=== PATIENT | female | born 1955 | race Caucasian/White ===

== ENCOUNTER 2018-08-18 11:22 | Inpatient (IN) | payer BC ==
[2018-08-18] MEDS ORDERED: Aplisol ID ONE (17:09)
[2018-08-18 17:50] LABS: BLOOD UREA NITROGEN 13 mg/dL (7-17); CHLORIDE 97 mmol/L (98-107); Calcium 9.9 mg/dL (8.4-10.2); Carbon Dioxide 30 mmol/L (22-30); Creatinine 1 0.91 mg/dL (0.52-1.04); Glucose 123 mg/dL (74-106); Potassium 4.6 mmol/L (3.5-5.1); SODIUM 138 mmol/L (137-145)
[2018-08-18] MEDS ORDERED: MOTRIN 400 MG PO PRN (21:58)
[2018-08-18] MEDS ORDERED: ULTRAM 50 MG PO PRN (22:01)
[2018-08-18] MEDS: ZOCOR 20MG PO SCH (22:25)
[2018-08-18] MEDS: Paxil 20 MG PO SCH (22:25)
[2018-08-18] MEDS: Lopressor 25MG Tab PO SCH (22:25)
[2018-08-19] MEDS ORDERED: ULTRAM 50 MG PO PRN (07:45)
[2018-08-19] MEDS ORDERED: NON-FORMULARY ITEM (Budesonide/Formoterol Fumarate [Symbicort 160-4.5 Mcg Inhaler] 10.2 GM IH PRN (07:49)
[2018-08-19] MEDS ORDERED: MEDICATION INTERVENTION MC SCH (08:00)
[2018-08-19] MEDS: PERCOCET TABLET 5/325MG PO PRN ×2 (08:24→22:12)
[2018-08-19] MEDS: Maxzide-25MG Tablet PO SCH (10:24)
[2018-08-19] MEDS: Miralax Powder 17GM PACKET PO SCH (10:25)
[2018-08-19] MEDS: NORVASC 5 MG PO SCH (10:25)
[2018-08-19] MEDS: XARELTO 10 MG TABLET PO SCH (22:09)
[2018-08-19] MEDS: Lopressor 25MG Tab PO SCH (22:09)
[2018-08-19] MEDS: ZOCOR 20MG PO SCH (22:09)
[2018-08-19] MEDS: Paxil 20 MG PO SCH (22:09)
[2018-08-20] MEDS: NORVASC 5 MG PO SCH (10:35)
[2018-08-20] MEDS: Maxzide-25MG Tablet PO SCH (10:35)
[2018-08-20] MEDS: Miralax Powder 17GM PACKET PO SCH (10:36)
[2018-08-20] MEDS: ULTRAM 50 MG PO PRN (18:15)
[2018-08-20] MEDS: Paxil 20 MG PO SCH (22:22)
[2018-08-20] MEDS: Lopressor 25MG Tab PO SCH (22:22)
[2018-08-20] MEDS: XARELTO 10 MG TABLET PO SCH (22:22)
[2018-08-20] MEDS: ZOCOR 20MG PO SCH (22:22)
[2018-08-21] MEDS: PERCOCET TABLET 5/325MG PO PRN ×3 (01:37→23:13)
[2018-08-21] MEDS: Maxzide-25MG Tablet PO SCH (09:28)
[2018-08-21] MEDS: NORVASC 5 MG PO SCH (09:28)
[2018-08-21] MEDS: Miralax Powder 17GM PACKET PO SCH (10:56)
[2018-08-21] MEDS: Paxil 20 MG PO SCH (23:09)
[2018-08-21] MEDS: Lopressor 25MG Tab PO SCH (23:09)
[2018-08-21] MEDS: XARELTO 10 MG TABLET PO SCH (23:09)
[2018-08-21] MEDS: ZOCOR 20MG PO SCH (23:09)
[2018-08-22] MEDS: ULTRAM 50 MG PO PRN ×3 (08:52→22:34)
[2018-08-22] MEDS: Maxzide-25MG Tablet PO SCH (10:08)
[2018-08-22] MEDS: NORVASC 5 MG PO SCH (10:08)
[2018-08-22] MEDS: Miralax Powder 17GM PACKET PO SCH (10:10)
[2018-08-22] MEDS: ZOCOR 20MG PO SCH (22:29)
[2018-08-22] MEDS: XARELTO 10 MG TABLET PO SCH (22:29)
[2018-08-22] MEDS: Lopressor 25MG Tab PO SCH (22:29)
[2018-08-22] MEDS: Paxil 20 MG PO SCH (22:29)
[2018-08-23] MEDS: Maxzide-25MG Tablet PO SCH (09:39)
[2018-08-23] MEDS: NORVASC 5 MG PO SCH (09:39)
[2018-08-23] MEDS: Miralax Powder 17GM PACKET PO SCH (09:41)
[2018-08-23] MEDS: TYLENOL 325 MG PO PRN (14:53)
[2018-08-23] MEDS: ULTRAM 50 MG PO PRN (21:29)
[2018-08-23] MEDS: Paxil 20 MG PO SCH (21:29)
[2018-08-23] MEDS: ZOCOR 20MG PO SCH (21:29)
[2018-08-23] MEDS: Lopressor 25MG Tab PO SCH (21:29)
[2018-08-23] MEDS: XARELTO 10 MG TABLET PO SCH (21:29)
[2018-08-24] MEDS: NORVASC 5 MG PO SCH (08:13)
[2018-08-24] MEDS: Maxzide-25MG Tablet PO SCH (08:13)
[2018-08-24] MEDS: Miralax Powder 17GM PACKET PO SCH (08:29)
[2018-08-24] MEDS: TYLENOL 325 MG PO PRN (19:32)
[2018-08-24 21:48] VITALS: O2SAT 94
[2018-08-24] MEDS: XARELTO 10 MG TABLET PO SCH (22:19)
[2018-08-24] MEDS: Lopressor 25MG Tab PO SCH (22:19)
[2018-08-24] MEDS: Paxil 20 MG PO SCH (22:19)
[2018-08-24] MEDS: ZOCOR 20MG PO SCH (22:20)
[2018-08-25 08:11] VITALS: BP 157/70; PULSE 66
--- NOTE | 2018-08-25 08:43 | DS ---
DISCHARGE DIAGNOSES: 1) KNEE REPLACEMENT SURGERY. 2) HYPERTENSION. HOSPITAL COURSE: The patient is a 62 year-old white female who had knee replacement surgery in [place]. She was admitted to our hospital swing-bed program for rehab. She has done quite well with her rehab ambulating the halls without difficulty. She is felt to be ready for discharge home by the morning of 08/25/2018. She has a follow up appointment to see her orthopedic physician in [place]. She will also have an appointment to see me in the office in one week. She will also be receiving outpatient therapy as well upon discharge home. The patient will continue to use her usual home medications with amlodipine 5 mg a day, Symbicort inhaler, ibuprofen PRN, Lopressor 25 mg at night, Percocet PRN for pain, paroxetine 20 mg at night, Pravachol 20 mg at night, Xarelto 10 mg at night, tramadol 50 mg PRN for pain and Maxzide 25 mg daily. The patient did have laboratories during her stay with [facility]. She had a BUN 13, creatinine 0.91. Her electrolytes were normal. Again, the patient is ready for discharge at this time. She was instructed to call if she has any problems with fever, warmth or redness in the leg.
[2018-08-25] MEDS: Maxzide-25MG Tablet PO SCH (11:51)
[2018-08-25] MEDS: Miralax Powder 17GM PACKET PO SCH (11:51)
[2018-08-25] MEDS: NORVASC 5 MG PO SCH (11:51)
== END 2018-08-25 12:50 | disposition home or self-care (01) | DRG 561 ==
LOC: MED SURG 16:12
PROVIDERS: ADMIT Family Medicine; ATTEND Family Medicine
DX: Z47.1 Aftercare following joint replacement surgery (principal); Z96.651 Presence of right artificial knee joint; I10 Essential (primary) hypertension; E78.5 Hyperlipidemia, unspecified; Z79.899 Other long term (current) drug therapy
CPT/HCPCS: 36415; 80048; 97110-GP; A9270-GY

== ENCOUNTER 2025-04-12 11:16 | Inpatient (IN) | payer MEDICARE, OTHER ==
--- NOTE | 2025-04-12 11:21 | ERPHSYRPT ---
- History of Present Illness Time Seen by Provider: 04/12/25 11:20 Source: EMS Exam Limitations: clinical condition Physician History: Patient is a morbidly obese 69-year-old white female patient was brought to the emergency department by the paramedics and is a patient of Dr. Aly out of [facility]. The patient lives alone. The last few days there has been signs of possibly some confusion. She has not been answering her phone. The paramedics provided additional independent history which includes family members went to her home to provide her with some taylor viri as they think she had not been eating or drinking well and the door was locked. They came back 24 hours later and the door was open the patient was on the toilet. There was some confusion and then. Confusion was worse this morning. Patient has a nonfocal exam but she is confused to time and place. She does not recall hitting her head. She has no complaints of pain. She does recall that she is to have some type of abdominal surgical procedure. A picture of black tarry stool was taken. It is unclear whether or not patient has been taking her medications. She is supposed to be taking Xarelto. Patient has a history of hypertension, hyperlipidemia, depression, asthma, gastroesophageal reflux disease. Time of Onset/Last Time Seen Normal: Several days ago Timing/Duration: day(s) (Symptoms for couple of days), worse Baseline/Normal Cognition: alert oriented x 3 Current Cognition: alert but confused, alert/disoriented to time Baseline Gait: walks w/o assistance Associated Symptoms: confusion Allergies/Adverse Reactions: No Known Drug Allergies Allergy (Verified 04/11/19 08:12) Home Medications: Budesonide/Formoterol Fumarate [Symbicort 160-4.5 Mcg Inhaler] 10.2 gm IH BID PRN 12/25/15 [History] Metoprolol Tartrate 25 mg [Lopressor 25MG Tab] 25 mg PO HS 12/25/15 [History] PARoxetine HCL [Paxil] 20 mg PO HS 12/25/15 [History] Pravastatin Sodium [Pravachol] 20 mg PO HS 12/25/15 [History] Amlodipine Besylate 5 mg [Norvasc 5 mg] 5 mg PO DAILY 08/18/18 [History] Ibuprofen [IBUPROFEN 400 MG TABLET] 2 tablet PO Q6H PRN PRN 08/18/18 [History] Oxycodone HCl/Acetaminophen [Percocet 5-325 mg Tablet] 1 each PO Q4H PRN PRN 08/18/18 [History] Rivaroxaban 10 mg Tablet [Xarelto 10 mg Tablet] 10 mg PO HS 08/18/18 [History] Tramadol HCl 50 mg [Ultram 50 mg] 50 mg PO Q6HPRN PRN 08/18/18 [History] Triamterene/Hydrochlorothiazid [Triamterene-Hctz 37.5-25 mg Tb] 1 each PO DAILY 08/18/18 [History] Hx Influenza Vaccination/Date Given: Yes Hx Pneumococcal Vaccination/Date Given: No Travel Risk - International Travel Have you traveled outside of the country in past 3 weeks: No - Emerging Infectious Disease Are you exhibiting symptoms associated with any current EIDs: No - Review of Systems Constitutional: No Symptoms Eyes: No Symptoms Ears, Nose, & Throat: No Symptoms Respiratory: No Symptoms Cardiac: No Symptoms Abdominal/Gastrointestinal: No Symptoms Genitourinary Symptoms: No Symptoms Musculoskeletal: No Symptoms Skin: No Symptoms Neurological: Other (Confusion) Psychological: No Symptoms Endocrine: No Symptoms Hematologic/Lymphatic: No Symptoms Immunological/Allergic: No Symptoms All Other Systems: Reviewed and Negative - Past Medical History Pertinent Past Medical History: Yes Respiratory History: Other, Asthma GI Medical History: Hernia, Other, GERD, Gallbladder Disease Female Reproductive Disorders: Fibroids, Endometriosis - Past Surgical History Past Surgical History: Yes Neuro Surgical History: No Pertinent History Cardiac: No Pertinent History Respiratory: Lobectomy, Other Gastrointestinal: Cholecystectomy Genitourinary: No Pertinent History Musculoskeletal: No Pertinent History, Other Female Surgical History: Hysterectomy, Other Other Surgical History: L knee scope,breast reduction,histoplasmosis, total left knee replacement 07/18. - Social History Drug Use: none - Nursing Vital Signs Nursing Vital Signs: Initial Vital Signs Temperature 98.8 F 04/12/25 11:19 Pulse Rate 125 H 04/12/25 11:19 Respiratory Rate 24 04/12/25 11:19 Blood Pressure 177/107 04/12/25 11:19 O2 Sat by Pulse Oximetry 98 04/12/25 11:19 Pain Scale Pain Intensity 0 - [place] Coma Scale Best Eye Response ([place]): (4) open spontaneously Best Verbal Response ([place]): (4) confused conversation Best Motor Response ([place]): (6) obeys commands [place] Total: 14 - Physical Exam General Appearance: no apparent distress, alert, obese Eye Exam: bilateral eye: normal inspection, PERRL, EOMI Ears, Nose, Throat Exam: normal ENT inspection, moist mucous membranes Neck Exam: normal inspection, non-tender, supple, full range of motion Respiratory: normal breath sounds, lungs clear, airway intact, No chest tenderness, No respiratory distress Cardiovascular: regular rate/rhythm, tachycardia Gastrointestinal: soft, normal bowel sounds, No tenderness Pelvic Exam: not done Rectal Exam: not done Extremity Exam: normal inspection, normal range of motion, pelvis stable 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 No evidence of acute ischemia.) Ordered Tests: Active Orders 24 hr Category Date Time Status Hands Parter STAT Care 04/12/25 11:29 Active Cath for Specimen-Straight STAT Care 04/12/25 11:29 Active EKG-ER Only STAT Care 04/12/25 11:28 Completed IV Insertion STAT Care 04/12/25 11:28 Active Pulse Oximetry (ED) STAT Care 04/12/25 11:28 Active ABDOMEN AND PELVIS W/0 CONTRAS [CT] Stat Exams 04/12/25 14:28 Completed HEAD WITHOUT CONTRAST [CT] Stat Exams 04/12/25 11:30 Completed BLOOD CULTURE Stat Lab 04/12/25 11:55 Received CBC W DIFF Stat Lab 04/12/25 12:03 Completed CMP Stat Lab 04/12/25 12:03 Completed CULTURE,URINE Stat Lab 04/12/25 11:30 Received Lactic Acid Stat Lab 04/12/25 11:55 Completed Lactic Acid Stat Lab 04/12/25 14:03 Completed MAGNESIUM Stat Lab 04/12/25 12:03 Completed POCT GLUCOSE Stat Lab 04/12/25 17:36 Completed PROTIME WITH INR Stat Lab 04/12/25 12:03 Completed UA W/RFX UR CULTURE Stat Lab 04/12/25 11:30 Completed Urine Triage Profile Stat Lab 04/12/25 11:30 Completed Transfer Order Routine Transfer 04/12/25 Ordered Medication Summary Generic Name Dose Route Start Last Admin Trade Name Deo PRN Reason Stop Dose Admin Sodium Chloride 1,000 mls @ 100 mls/hr 04/12/25 11:30 04/12/25 11:56 Sodium Chloride 0.9% 1000 Ml IV 05/12/25 11:29 100 mls/hr .Q10H VADIM Administration Discontinued Medications Generic Name Dose Route Start Last Admin Trade Name Deo PRN Reason Stop Dose Admin Piperacillin Sod/Tazobactam 100 mls @ 200 mls/hr 04/12/25 13:58 04/12/25 15:05 Sod 3.375 gm/ Sodium Chloride IV 04/12/25 14:27 Infused STAT STA Infusion Sodium Chloride Confirm 04/12/25 14:08 Sodium Chloride 0.9% 250 Ml Administered 04/12/25 14:09 Dose 250 mls @ ud IV .STK-MED ONE Sodium Chloride Confirm 04/12/25 14:09 Sodium Chloride 0.9% Administered 04/12/25 14:10 Dose 100 mls @ ud .ROUTE .STK-MED ONE Sodium Chloride Confirm 04/12/25 14:13 Sodium Chloride 0.9% 500 Ml Administered 04/12/25 14:14 Dose 500 mls @ ud IV .STK-MED ONE Sodium Chloride Confirm 04/12/25 14:13 Sodium Chloride 0.9% Administered 04/12/25 14:14 Dose 100 mls @ ud .ROUTE .STK-MED ONE Labetalol HCl 10 mg 04/12/25 12:29 04/12/25 12:32 Labetalol Hcl 20 Mg/4 Ml Disp.Syringe IV 04/12/25 12:30 10 mg STAT ONE Administration Labetalol HCl Confirm 04/12/25 12:31 Labetalol Hcl 20 Mg/4 Ml Disp.Syringe Administered 04/12/25 12:32 Dose 20 mg IV .STK-MED ONE Piperacillin Sod/Tazobactam Sod Confirm 04/12/25 14:05 Piperacillin/Tazobactam Sodium 3.375 Gm Vial Administered 04/12/25 14:06 Dose 3.375 gm IV .STK-MED ONE Lab/Rad Data: Laboratory Result Diagrams 04/12/25 12:03 04/12/25 12:03 Laboratory Results 04/12/25 04/12/25 04/12/25 Range/Units 17:36 14:03 12:03 WBC (3.98-10.04) x10^3/uL RBC (3.93-5.22) x10^6/uL Hgb (11.2-15.7) g/dL Hct (34.1-44.9) % MCV (79.4-94.8) fL MCH (25.6-32.2) pg MCHC (32.2-35.5) g/dL RDW (11.7-14.4) % Plt Count (182-369) x10^3/uL MPV (9.4-12.3) fL Gran % (34.0-71.1) % Immature Gran % (Auto) (0.001-0.429) % Nucleat RBC Rel Count (0.00-0.2) % Eos # (Auto) (0.04-0.36) x10^3/uL Immature Gran # (Auto) (0.001-0.031) x10^3u/L Absolute Lymphs (auto) (1.18-3.74) x10^3/uL Absolute Monos (auto) (0.24-0.86) x10^3/uL Absolute Nucleated RBC (0.00-0.012) x10^3u/L Lymphocytes % (19.3-51.7) % Monocytes % (4.7-12.5) % Eosinophils % (0.7-5.8) % Basophils % (0.1-1.2) % Absolute Granulocytes (1.56-6.13) x10^3/uL Basophils # (0.01-0.08) x10^3/uL PT (9.4-12.5) SECONDS INR (0.8-3.0) Sodium (135-145) mmol/L Potassium (3.5-5.1) mmol/L Chloride (98-107) mmol/L Carbon Dioxide (22-30) mmol/L Anion Gap (5-15) MEQ/L BUN (7-17) mg/dL Creatinine (0.52-1.04) mg/dL Estimated GFR ML/MIN Glucose (74-106) mg/dL POC Glucometer 155 H (74 to 106) mg/dL Lactic Acid 1.8 (0.4-2.0) Calcium (8.4-10.2) mg/dL Magnesium (1.6-2.3) mg/dL Total Bilirubin (0.2-1.3) mg/dL AST (14-36) U/L ALT (0-35) U/L Alkaline Phosphatase (38-126) U/L Ammonia < 9 L (9-30) umol/L Serum Total Protein (6.3-8.2) g/dL Albumin (3.5-5.0) g/dL Urine Color (Yellow) Urine Appearance (Clear) Urine pH (4.6-8.0) Ur Specific [place] (1.005-1.030) Urine Protein (Negative) Urine Glucose (UA) (Negative) mg/dL Urine Ketones (Negative) Urine Blood (Negative) Urine Nitrite (Negative) Urine Bilirubin (Negative) Urine Urobilinogen (0.2) mg/dL Ur Leukocyte Esterase (Negative) U Hyaline Cast (Auto) (0-2) /LPF Urine Microscopic RBC (0-5) /HPF Urine Microscopic WBC (0-5) /HPF Ur Epithelial Cells (None Seen) /HPF Urine Bacteria (None Seen) /HPF Urine Culture Reflexed (NO) Urine Opiates Level (NEGATIVE) Ur Methadone (NEGATIVE) Urine Barbiturates (NEGATIVE) Ur Phencyclidine (PCP) (NEGATIVE) Urine Amphetamine (NEGATIVE) U Benzodiazepine Level (NEGATIVE) Urine Cocaine (NEGATIVE) Urine Marijuana (THC) (NEGATIVE) Slides for Path Review 04/12/25 04/12/25 04/12/25 Range/Units 12:03 12:03 12:03 WBC 22.2 H (3.98-10.04) x10^3/uL RBC 5.23 H (3.93-5.22) x10^6/uL Hgb 14.6 (11.2-15.7) g/dL Hct 46.7 H (34.1-44.9) % MCV 89.3 (79.4-94.8) fL MCH 27.9 (25.6-32.2) pg MCHC 31.3 L (32.2-35.5) g/dL RDW 13.2 (11.7-14.4) % Plt Count 250 (182-369) x10^3/uL MPV 12.0 (9.4-12.3) fL Gran % 84.0 H (34.0-71.1) % Immature Gran % (Auto) 0.5 H (0.001-0.429) % Nucleat RBC Rel Count 0.0 (0.00-0.2) % Eos # (Auto) 0 L (0.04-0.36) x10^3/uL Immature Gran # (Auto) 0.11 H (0.001-0.031) x10^3u/L Absolute Lymphs (auto) 1.18 (1.18-3.74) x10^3/uL Absolute Monos (auto) 2.24 H (0.24-0.86) x10^3/uL Absolute Nucleated RBC 0.00 (0.00-0.012) x10^3u/L Lymphocytes % 5.3 L (19.3-51.7) % Monocytes % 10.1 (4.7-12.5) % Eosinophils % 0.0 L (0.7-5.8) % Basophils % 0.1 (0.1-1.2) % Absolute Granulocytes 18.63 H (1.56-6.13) x10^3/uL Basophils # 0.02 (0.01-0.08) x10^3/uL PT 12.2 (9.4-12.5) SECONDS INR 1.09 (0.8-3.0) Sodium 133 L (135-145) mmol/L Potassium 3.7 (3.5-5.1) mmol/L Chloride 98 (98-107) mmol/L Carbon Dioxide 20 L (22-30) mmol/L Anion Gap 20.0 H (5-15) MEQ/L BUN 43 H (7-17) mg/dL Creatinine 2.45 H (0.52-1.04) mg/dL Estimated GFR 20.8 ML/MIN Glucose 188 H (74-106) mg/dL POC Glucometer (74 to 106) mg/dL Lactic Acid (0.4-2.0) Calcium 9.6 (8.4-10.2) mg/dL Magnesium 2.3 (1.6-2.3) mg/dL Total Bilirubin 1.80 H (0.2-1.3) mg/dL AST 362 H (14-36) U/L ALT 151 H (0-35) U/L Alkaline Phosphatase 162 H (38-126) U/L Ammonia (9-30) umol/L Serum Total Protein 8.3 H (6.3-8.2) g/dL Albumin 4.4 (3.5-5.0) g/dL Urine Color (Yellow) Urine Appearance (Clear) Urine pH (4.6-8.0) Ur Specific [place] (1.005-1.030) Urine Protein (Negative) Urine Glucose (UA) (Negative) mg/dL Urine Ketones (Negative) Urine Blood (Negative) Urine Nitrite (Negative) Urine Bilirubin (Negative) Urine Urobilinogen (0.2) mg/dL Ur Leukocyte Esterase (Negative) U Hyaline Cast (Auto) (0-2) /LPF Urine Microscopic RBC (0-5) /HPF Urine Microscopic WBC (0-5) /HPF Ur Epithelial Cells (None Seen) /HPF Urine Bacteria (None Seen) /HPF Urine Culture Reflexed (NO) Urine Opiates Level (NEGATIVE) Ur Methadone (NEGATIVE) Urine Barbiturates (NEGATIVE) Ur Phencyclidine (PCP) (NEGATIVE) Urine Amphetamine (NEGATIVE) U Benzodiazepine Level (NEGATIVE) Urine Cocaine (NEGATIVE) Urine Marijuana (THC) (NEGATIVE) Slides for Path Review YES 04/12/25 04/12/25 04/12/25 Range/Units 11:55 11:30 11:30 WBC (3.98-10.04) x10^3/uL RBC (3.93-5.22) x10^6/uL Hgb (11.2-15.7) g/dL Hct (34.1-44.9) % MCV (79.4-94.8) fL MCH (25.6-32.2) pg MCHC (32.2-35.5) g/dL RDW (11.7-14.4) % Plt Count (182-369) x10^3/uL MPV (9.4-12.3) fL Gran % (34.0-71.1) % Immature Gran % (Auto) (0.001-0.429) % Nucleat RBC Rel Count (0.00-0.2) % Eos # (Auto) (0.04-0.36) x10^3/uL Immature Gran # (Auto) (0.001-0.031) x10^3u/L Absolute Lymphs (auto) (1.18-3.74) x10^3/uL Absolute Monos (auto) (0.24-0.86) x10^3/uL Absolute Nucleated RBC (0.00-0.012) x10^3u/L Lymphocytes % (19.3-51.7) % Monocytes % (4.7-12.5) % Eosinophils % (0.7-5.8) % Basophils % (0.1-1.2) % Absolute Granulocytes (1.56-6.13) x10^3/uL Basophils # (0.01-0.08) x10^3/uL PT (9.4-12.5) SECONDS INR (0.8-3.0) Sodium (135-145) mmol/L Potassium (3.5-5.1) mmol/L Chloride (98-107) mmol/L Carbon Dioxide (22-30) mmol/L Anion Gap (5-15) MEQ/L BUN (7-17) mg/dL Creatinine (0.52-1.04) mg/dL Estimated GFR ML/MIN Glucose (74-106) mg/dL POC Glucometer (74 to 106) mg/dL Lactic Acid 3.4 H (0.4-2.0) Calcium (8.4-10.2) mg/dL Magnesium (1.6-2.3) mg/dL Total Bilirubin (0.2-1.3) mg/dL AST (14-36) U/L ALT (0-35) U/L Alkaline Phosphatase (38-126) U/L Ammonia (9-30) umol/L Serum Total Protein (6.3-8.2) g/dL Albumin (3.5-5.0) g/dL Urine Color Dark Yellow A (Yellow) Urine Appearance Turbid A (Clear) Urine pH 5.0 (4.6-8.0) Ur Specific [place] 1.025 (1.005-1.030) Urine Protein 300 A (Negative) Urine Glucose (UA) 100 A (Negative) mg/dL Urine Ketones Negative (Negative) Urine Blood Large A (Negative) Urine Nitrite Positive A (Negative) Urine Bilirubin Small A (Negative) Urine Urobilinogen 1.0 A (0.2) mg/dL Ur Leukocyte Esterase Moderate A (Negative) U Hyaline Cast (Auto) >50 A (0-2) /LPF Urine Microscopic RBC 3-5 (0-5) /HPF Urine Microscopic WBC 21-50 A (0-5) /HPF Ur Epithelial Cells Moderate A (None Seen) /HPF Urine Bacteria None Seen (None Seen) /HPF Urine Culture Reflexed ORDERED SEPARATELY (NO) Urine Opiates Level NEGATIVE (NEGATIVE) Ur Methadone NEGATIVE (NEGATIVE) Urine Barbiturates NEGATIVE (NEGATIVE) Ur Phencyclidine (PCP) NEGATIVE (NEGATIVE) Urine Amphetamine NEGATIVE (NEGATIVE) U Benzodiazepine Level NEGATIVE (NEGATIVE) Urine Cocaine NEGATIVE (NEGATIVE) Urine Marijuana (THC) NEGATIVE (NEGATIVE) Slides for Path Review - Progress Progress: improved, re-examined Progress Note: 04/12/25 12:11 My medical decision making and the assignment of high complexity of this patient's medical issue today is based on review of the patient's past medical history, reviewed the patient's medication list, reviewed patient drug allergy list, history present illness and physical findings on examination. The workup in this patient includes placement of an intravenous line, infusion of low rate crystalloid, urinalysis, urine drug triage, CT scan of the head without contrast, twelve-lead EKG, troponin level, CBC, CMP, magnesium level, ammonia level. Differential diagnosis includes but is not limited to metabolic encephalopathy, acute intracranial abnormality, CVA, TIA, urinary tract infection, dehydration, electrolyte abnormalities, arrhythmia, myocardial infarction, anemia 04/12/25 12:30 Nursing staff here in the emergency department report that this patient has not not taken her medications this morning. Patient unsure if she has taken them in the last few days. 04/12/25 18:10 I interpreted the patient's laboratory data results. Patient has a significant leukocytosis with a left shift. The white blood cell count is over 22,000. She has evidence of urosepsis and significant urinary tract infection. She also has elevated liver function test. Patient has an elevated lactic acid level. CT scan of the head without contrast was interpreted by the radiologist and I reviewed the impression. The impression states nonacute senile brain. CT scan of the abdomen pelvis was interpreted by the radiologist. This was a test performed without contrast. There is no acute intra-abdominal or intrapelvic process. There is evidence of degenerative changes in the pelvis and hip as well as in the spine. I spoke with the patient's family member. He believes that the "surgical procedure" being performed in this patient is not upper endoscopy. 04/12/25 18:16 I did speak with Dr. Harris a couple times regarding this patient. I reviewed the patient history, presenting complaint, physical findings on examination and the workup results including the results of the CT scan of the abdomen pelvis which she wanted performed prior to her going to the floor. We will place this patient on the medical surgical floor under telemetry monitoring. We will also obtain social service consultation for evaluation for possible intermediate placement. 04/12/25 18:19 I had not provided the patient with significant amount of intravenous fluid because of the patient's acute renal insufficiency. We will continue IV hydration and intravenous antibiotics in the hospital. Discussed with Dr.: Lorene Counseled pt/family regarding: lab results, diagnosis, rad results Medical Desision Making - Independent Historian Additional History obtained from: Family, Snow Removal/Plowing/EMT - Discussion of managment Care discussed with:: hospitalist - Diagnostic Testing Diagnostic test were ordered, analyzed, and reviewed by me: Yes Radiological Interpretation: Reviewed by me, Teleradiologist Report - Risk of complications The pt has a high risk of morbidity or mortality based on: Decision regarding hospitilization or escalation of hosp level of care - Departure Departure Disposition: Observation Clinical Impression: Acute renal insufficiency, Leukocytosis, Sepsis, Altered mental status, Elevated liver enzymes, Lactic acidosis Condition: Fair Critical Care Time: Yes Critical Care Time(excluding separately billable procedures): Critical 30-74 mins (60) Referrals: HARESH ALY JR [Primary Care Provider, ORTHOPEDICS] - Follow up/PCP as directed
[2025-04-12 12:13] LABS: BASOPHIL % 0.1 % (0.1-1.2); Basophil (Absolute #) 0.02 x10^3/uL (0.01-0.08); Eosinophil (Absolute #) 0 x10^3/uL (0.04-0.36); Hematocrit 46.7 % (34.1-44.9); Hemoglobin 14.6 g/dL (11.2-15.7); IMMATURE GRAN # 0.11 x10^3u/L (0.001-0.031); IMMATURE GRAN % 0.5 % (0.001-0.429); Lymphocyte (Absolute #) 1.18 x10^3/uL (1.18-3.74); Mean Corpuscular Hemoglobin 27.9 pg (25.6-32.2); Mean Corpuscular Hgb Concent. 31.3 g/dL (32.2-35.5); Monocyte (Absolute #) 2.24 x10^3/uL (0.24-0.86); NUCLEATED RBC # 0.00 x10^3u/L (0.00-0.012); NUCLEATED RBC % 0.0 % (0.00-0.2); Platelet Count 250 x10^3/uL (182-369); Red Blood Count 5.23 x10^6/uL (3.93-5.22); White Blood Count 22.2 x10^3/uL (3.98-10.04)
[2025-04-12 12:27] LABS: Calcium 9.6 mg/dL (8.4-10.2); Carbon Dioxide 20.0 mmol/L (22-30); Creatinine 1 2.45 mg/dL (0.52-1.04); EST GLOMERULAR FILTRATION RATE 20.8 ML/MIN; Glucose 188.0 mg/dL (74-106); Potassium 3.7 mmol/L (3.5-5.1); SGOT/AST 362.0 U/L (14-36); SGPT/ALT 151.0 U/L (0-35); Total Protein 8.3 g/dL (6.3-8.2)
[2025-04-12 12:28] LABS: INR 1.09 (0.8-3.0); PROTIME 12.2 SECONDS (9.4-12.5)
[2025-04-12] MEDS ORDERED: TRANDATE 20 MG/4 ML SYRINGE IV ONE (12:31)
[2025-04-12] MEDS: TRANDATE 20 MG/4 ML SYRINGE IV ONE (12:32)
--- NOTE | 2025-04-12 12:35 | XRAY ---
Indication: Altered mental status. Multiple contiguous axial images obtained through the head without contrast. Comparison: None Age-appropriate global atrophy and minimal periventricular degenerative microischemia. No acute intracranial hemorrhage, abnormal extra-axial fluid collection, or mass effect. 4th ventricle is midline without hydrocephalus. [place]-white matter differentiation preserved. Bony calvarium intact. Visualized paranasal sinuses and mastoid air cells are clear. Impression: Nonacute senile brain.
[2025-04-12 13:09] LABS: Glucose, Urine 100 mg/dL (Negative); Protein,Urine Dip 300 (Negative); WBC 21-50 /HPF (0-5)
[2025-04-12 13:22] LABS: Amphetamine,Urine NEGATIVE (NEGATIVE); Barbiturate,Urine NEGATIVE (NEGATIVE); Benzodiazepine,Urine NEGATIVE (NEGATIVE); Cocaine,Urine NEGATIVE (NEGATIVE); Methadone,Urine NEGATIVE (NEGATIVE); Opiate,Urine NEGATIVE (NEGATIVE); PCP,Urine NEGATIVE (NEGATIVE); THC,Urine NEGATIVE (NEGATIVE)
[2025-04-12 13:47] LABS: Slide Review 1 YES
[2025-04-12] MEDS ORDERED: PIPERACILLIN/TAZOBACTAM IV ONE ×2 (14:05→23:30)
[2025-04-12] MEDS ORDERED: Sodium Chloride 0.9% 250 ML 0 ML IV ONE (14:08)
--- NOTE | 2025-04-12 17:17 | XRAY ---
Indication: Elevated liver enzymes. Multiple contiguous axial images obtained through the abdomen and pelvis without contrast. Comparison: CT abdomen only February 03, 2016 Lung bases again hyperinflated with now mild scattered bilateral subsegmental atelectasis/scarring. No infiltrate or effusion. Heart is now enlarged. Grossly stable moderate-sized hiatal hernia with partial intrathoracic stomach. Left hemidiaphragm demonstrates new chain of metallic densities presumed iatrogenic/postsurgical. Noncontrasted stomach and bowel loops appear nonobstructed with normal appendix. Again 20.9 cm fatty hepatomegaly and 14 cm splenomegaly. Previous cholecystectomy and hysterectomy. No free fluid/air. Remaining liver, pancreas, spleen, adrenal glands, kidneys, ureters, and bladder are unremarkable for noncontrast exam. New minimal aortoiliac calcifications without AAA. Osseous structures intact with now osteopenia, mild/moderate multilevel thoracolumbar degenerative spondylosis, mild degenerative changes both hips, and superior T12 endplate fracture with less than 25% height loss of uncertain chronicity. Impression: 1. New bibasilar atelectasis/scarring and cardiomegaly. Also new left hemidiaphragm metallic densities presumed iatrogenic/postsurgical. 2. New osteopenia, multilevel degenerative spondylosis, degenerative changes both hips, and T12 endplate fracture of uncertain chronicity. 3. Again hiatal hernia with partial intrathoracic stomach, fatty hepatomegaly, and splenomegaly. 4. Remaining CT abdomen/pelvis without contrast exam is negative.
[2025-04-12] MEDS: TYLENOL 325 MG PO PRN (20:34)
[2025-04-13] MEDS ORDERED: PIPERACILLIN/TAZOBACTAM IV ONE (05:22)
[2025-04-13] MEDS ORDERED: ULTRAM 50 MG PO PRN (07:06)
[2025-04-13] MEDS ORDERED: NON-FORMULARY ITEM (Budesonide/Formoterol Fumarate [Symbicort 160-4.5 Mcg Inhaler] 10.2 GM IH PRN (07:06)
[2025-04-13] MEDS ORDERED: IBUPROFEN PO PRN (07:06)
[2025-04-13 07:08] LABS: Hematocrit 40.2 % (34.1-44.9); Hemoglobin 12.4 g/dL (11.2-15.7); Mean Corpuscular Hemoglobin 28.4 pg (25.6-32.2); Mean Corpuscular Hgb Concent. 30.8 g/dL (32.2-35.5); Platelet Count 148 x10^3/uL (182-369); Red Blood Count 4.36 x10^6/uL (3.93-5.22); White Blood Count 14.6 x10^3/uL (3.98-10.04)
[2025-04-13] MEDS ORDERED: MOTRIN 400 MG PO PRN (07:18)
--- NOTE | 2025-04-13 07:22 | PCM.HP ---
History of Present Illness - Chief Complaint Chief Complaint: SEPSIS History of Present Illness: Sepsis secondary to urinary tract infection (acute pyelonephritis) (acute, ongoing evaluation) - She was initiated on IV Zosyn for enteric coverage after a 2.5 liter fluid bolus. - Blood and urine cultures are currently pending. - A repeat CBC and BMP have been ordered. Altered mental status (acute, ongoing evaluation) - This is suspected to be a metabolic encephalopathy secondary to her underlying infection and metabolic derangements. - She was initially alert and oriented to person only on presentation but has since improved. - Her mental status will be closely monitored as her underlying conditions are addressed. Acute kidney injury (acute, ongoing evaluation) - This is likely secondary to sepsis. - She received a 2.5 liter fluid bolus and will be continued on IV maintenance fluids at 75 mL/hr. - Her renal function will be reassessed following fluid resuscitation. Hypertension (chronic, controlled) - Her home blood pressure medications have been resumed. Volume depletion (acute, ongoing evaluation) - Her home diuretic has been held due to evidence of volume depletion. Subjective This is a 69-year-old woman who was transported to the hospital by emergency medical services after family members became concerned when she was not answering her phone. On presentation, she was found to be confused. Home medications Her home diuretic has been held. Her home blood pressure medication has been resumed. Physical examination Vital Signs Blood Pressure: 150/64 mmHg Heart Rate: 107 bpm Respiratory Rate: Tachypneic Oxygen Saturation: 92% on 2 liters of supplemental oxygen Height: 5'6" Weight: 137 lbs BMI: 22.1 Neurological She is alert and oriented to person, place, and time. Cardiovascular She is tachycardic with a regular rhythm. She is warm. Respiratory She is tachypneic but is able to speak comfortably in full sentences. Lab and Studies Reviewed - Basic Metabolic Panel (04/12/2025): Sodium 132, Potassium 3.7, Chloride 95, Bicarbonate 20, BUN 42, Creatinine 2.45, GFR 20. Independently reviewed and interpreted by me. - Lactic Acid (04/12/2025): 2.4. Independently reviewed and interpreted by me. - Complete Blood Count (04/12/2025): Hemoglobin 14.6, Platelet count 240,000- 250,000, White blood cell count 22.2. Independently reviewed and interpreted by me. - Urinalysis (04/12/2025): Positive for moderate leukocyte esterase and pyuria. Independently reviewed and interpreted by me. Notes reviewed Emergency Department documentation from 04/12/2025 was reviewed. The documentation noted the patient is a 69-year-old woman who presented with confusion, with concern for sepsis secondary to a urinary tract infection (acute pyelonephritis). The plan included a 2.5 liter fluid bolus and initiation of IV Zosyn. It also noted altered mental status secondary to metabolic encephalopathy and acute kidney injury likely secondary to sepsis. MDM Summary 1. Number and Complexity of Problems Addressed (CoPA): - High Complexity: The patient presents with multiple acute problems, including sepsis, acute kidney injury, and altered mental status, which pose a significant threat to life and bodily function, requiring intensive management. 2. Amount and/or Complexity of Data to be Reviewed and Analyzed (Data): - Extensive: Management required review of multiple complex lab tests (BMP, CBC, lactate, UA), review of external records (ED documentation), and ordering of additional tests (repeat CBC, BMP, cultures). 3. Risk of Complications, Morbidity, and/or Mortality (Risk): - High Risk: The decision-making is high risk due to the management of sepsis, which involves IV fluids and IV antibiotics (Zosyn). Furthermore, there is an escalation of care to an inpatient setting. - Review of Systems Constitutional: No Fever, No Chills Respiratory: No Cough, No Short Of Breath Cardiac: No Chest Pain, No Edema Abdominal/Gastrointestinal: No Abdominal Pain Hematologic/Lymphatic: No Easy Bleeding, No Easy Bruising Immunological/Allergic: No Symptoms Medications & Allergies Home Medications: Home Medication List Budesonide/Formoterol Fumarate [Symbicort 160-4.5 Mcg Inhaler] 10.2 gm IH BID PRN 12/25/15 [History Confirmed 08/18/18] Metoprolol Tartrate 25 mg [Lopressor 25MG Tab] 25 mg PO HS 12/25/15 [History Confirmed 08/18/18] PARoxetine HCL [Paxil] 20 mg PO HS 12/25/15 [History Confirmed 08/18/18] Pravastatin Sodium [Pravachol] 20 mg PO HS 12/25/15 [History Confirmed 08/18/18] Amlodipine Besylate 5 mg [Norvasc 5 mg] 5 mg PO DAILY 08/18/18 [History Confirmed 08/18/18] Ibuprofen [IBUPROFEN 400 MG TABLET] 2 tablet PO Q6H PRN PRN 08/18/18 [History Confirmed 08/18/18] Oxycodone HCl/Acetaminophen [Percocet 5-325 mg Tablet] 1 each PO Q4H PRN PRN 08/18/18 [History Confirmed 08/18/18] Rivaroxaban 10 mg Tablet [Xarelto 10 mg Tablet] 10 mg PO HS 08/18/18 [History Confirmed 08/18/18] Tramadol HCl 50 mg [Ultram 50 mg] 50 mg PO Q6HPRN PRN 08/18/18 [History Confirmed 08/18/18] Triamterene/Hydrochlorothiazid [Triamterene-Hctz 37.5-25 mg Tb] 1 each PO DAILY 08/18/18 [History Confirmed 08/18/18] Allergies/Adverse Reactions: Allergies Allergy/AdvReac Type Severity Reaction Status Date / Time No Known Drug Allergies Allergy Verified 04/11/19 08:12 - Past Medical History Past Medical History: Yes Neurological History: No Pertinent History ENT History: No Pertinent History Cardiac History: Hypertension Respiratory History: Other, Asthma Endocrine Medical History: No Pertinent History Musculoskelatal History: Osteoarthritis GI Medical History: Hernia, Other, GERD, Gallbladder Disease History: No Pertinent History Pyscho-Social History: No Pertinent History Reproductive Disorders: Fibroids, Endometriosis Comment: RIGHT LOWER LOBE OF LUNG REMOVED 18 YEARS AGO. HX OF 2 BLOOD TRANSFUSIONS DUE TO ANEMIA.. 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 - Social History Smoking Status: Unknown if ever smoked Exposure to second hand smoke: No Alcohol: None Drug Use: none - Social Determinants of Health Will the patient participate in the screening: Unable to obtain - Physical Exam Vital Signs: Vital Signs - 24 hr Temp Pulse Resp BP BP Pulse Ox 04/13/25 04:00 98.9 F 91 H 24 129/71 94 L 04/12/25 23:01 100.8 F 107 H 22 150/64 92 L 04/12/25 21:45 99.0 F 04/12/25 20:55 117 H 20 96 04/12/25 20:16 103.2 F 04/12/25 19:34 92 L 04/12/25 19:25 98.9 F 63 28 H 131/84 91 L 04/12/25 19:17 98.9 F 63 28 H 131/84 91 L 04/12/25 18:16 98.2 F 112 H 33 H 90/76 95 04/12/25 18:01 119 H 33 H 128/110 95 04/12/25 17:47 120 H 32 H 96 04/12/25 17:32 116 H 33 H 177/113 97 04/12/25 17:22 117 H 33 H 134/77 97 04/12/25 17:16 111 H 37 H 176/80 96 04/12/25 16:01 110 H 36 H 184/75 100 04/12/25 15:45 106 H 33 H 160/88 04/12/25 15:30 104 H 31 H 174/86 97 04/12/25 15:15 104 H 26 H 162/90 96 04/12/25 15:00 98 H 30 H 156/85 96 04/12/25 14:45 94 H 28 H 168/74 97 04/12/25 14:30 98 H 32 H 160/111 96 04/12/25 14:15 97 H 31 H 166/75 96 04/12/25 14:00 95 H 31 H 161/103 04/12/25 13:45 95 H 33 H 161/83 95 04/12/25 13:30 100 H 29 H 164/85 96 04/12/25 13:15 100 H 32 H 147/89 92 L 04/12/25 13:00 99 H 29 H 149/91 91 L 04/12/25 12:51 98 H 28 H 161/113 95 04/12/25 12:45 97 H 31 H 162/83 93 L 04/12/25 12:33 97 H 27 H 156/110 93 L 04/12/25 12:32 95 04/12/25 12:30 93 L 04/12/25 12:19 184/117 93 L 04/12/25 12:10 92 L 04/12/25 12:00 122 H 20 94 L 04/12/25 11:50 95 04/12/25 11:46 92 L 04/12/25 11:41 98 04/12/25 11:19 98.8 F 125 H 24 177/107 98 Results - Labs Lab/Micro Results: Lab Results-Last 24 Hours 04/12/25 04/12/25 04/12/25 Range/Units 11:30 11:30 11:55 WBC (3.98-10.04) x10^3/uL RBC (3.93-5.22) x10^6/uL Hgb (11.2-15.7) g/dL Hct (34.1-44.9) % MCV (79.4-94.8) fL MCH (25.6-32.2) pg MCHC (32.2-35.5) g/dL RDW (11.7-14.4) % Plt Count (182-369) x10^3/uL MPV (9.4-12.3) fL Gran % (34.0-71.1) % Immature Gran % (Auto) (0.001-0.429) % Nucleat RBC Rel Count (0.00-0.2) % Eos # (Auto) (0.04-0.36) x10^3/uL Immature Gran # (Auto) (0.001-0.031) x10^3u/L Absolute Lymphs (auto) (1.18-3.74) x10^3/uL Absolute Monos (auto) (0.24-0.86) x10^3/uL Absolute Nucleated RBC (0.00-0.012) x10^3u/L Lymphocytes % (19.3-51.7) % Monocytes % (4.7-12.5) % Eosinophils % (0.7-5.8) % Basophils % (0.1-1.2) % Absolute Granulocytes (1.56-6.13) x10^3/uL Basophils # (0.01-0.08) x10^3/uL PT (9.4-12.5) SECONDS INR (0.8-3.0) Sodium (135-145) mmol/L Potassium (3.5-5.1) mmol/L Chloride (98-107) mmol/L Carbon Dioxide (22-30) mmol/L Anion Gap (5-15) MEQ/L BUN (7-17) mg/dL Creatinine (0.52-1.04) mg/dL Estimated GFR ML/MIN Glucose (74-106) mg/dL POC Glucometer (74 to 106) mg/dL Lactic Acid 3.4 H (0.4-2.0) Calcium (8.4-10.2) mg/dL Magnesium (1.6-2.3) mg/dL Total Bilirubin (0.2-1.3) mg/dL AST (14-36) U/L ALT (0-35) U/L Alkaline Phosphatase (38-126) U/L Ammonia (9-30) umol/L Serum Total Protein (6.3-8.2) g/dL Albumin (3.5-5.0) g/dL Urine Color Dark Yellow A (Yellow) Urine Appearance Turbid A (Clear) Urine pH 5.0 (4.6-8.0) Ur Specific [place] 1.025 (1.005-1.030) Urine Protein 300 A (Negative) Urine Glucose (UA) 100 A (Negative) mg/dL Urine Ketones Negative (Negative) Urine Blood Large A (Negative) Urine Nitrite Positive A (Negative) Urine Bilirubin Small A (Negative) Urine Urobilinogen 1.0 A (0.2) mg/dL Ur Leukocyte Esterase Moderate A (Negative) U Hyaline Cast (Auto) >50 A (0-2) /LPF Urine Microscopic RBC 3-5 (0-5) /HPF Urine Microscopic WBC 21-50 A (0-5) /HPF Ur Epithelial Cells Moderate A (None Seen) /HPF Urine Bacteria None Seen (None Seen) /HPF Urine Culture Reflexed ORDERED SEPARATELY (NO) Urine Opiates Level NEGATIVE (NEGATIVE) Ur Methadone NEGATIVE (NEGATIVE) Urine Barbiturates NEGATIVE (NEGATIVE) Ur Phencyclidine (PCP) NEGATIVE (NEGATIVE) Urine Amphetamine NEGATIVE (NEGATIVE) U Benzodiazepine Level NEGATIVE (NEGATIVE) Urine Cocaine NEGATIVE (NEGATIVE) Urine Marijuana (THC) NEGATIVE (NEGATIVE) Slides for Path Review 04/12/25 04/12/25 04/12/25 Range/Units 12:03 12:03 12:03 WBC 22.2 H (3.98-10.04) x10^3/uL RBC 5.23 H (3.93-5.22) x10^6/uL Hgb 14.6 (11.2-15.7) g/dL Hct 46.7 H (34.1-44.9) % MCV 89.3 (79.4-94.8) fL MCH 27.9 (25.6-32.2) pg MCHC 31.3 L (32.2-35.5) g/dL RDW 13.2 (11.7-14.4) % Plt Count 250 (182-369) x10^3/uL MPV 12.0 (9.4-12.3) fL Gran % 84.0 H (34.0-71.1) % Immature Gran % (Auto) 0.5 H (0.001-0.429) % Nucleat RBC Rel Count 0.0 (0.00-0.2) % Eos # (Auto) 0 L (0.04-0.36) x10^3/uL Immature Gran # (Auto) 0.11 H (0.001-0.031) x10^3u/L Absolute Lymphs (auto) 1.18 (1.18-3.74) x10^3/uL Absolute Monos (auto) 2.24 H (0.24-0.86) x10^3/uL Absolute Nucleated RBC 0.00 (0.00-0.012) x10^3u/L Lymphocytes % 5.3 L (19.3-51.7) % Monocytes % 10.1 (4.7-12.5) % Eosinophils % 0.0 L (0.7-5.8) % Basophils % 0.1 (0.1-1.2) % Absolute Granulocytes 18.63 H (1.56-6.13) x10^3/uL Basophils # 0.02 (0.01-0.08) x10^3/uL PT 12.2 (9.4-12.5) SECONDS INR 1.09 (0.8-3.0) Sodium 133 L (135-145) mmol/L Potassium 3.7 (3.5-5.1) mmol/L Chloride 98 (98-107) mmol/L Carbon Dioxide 20 L (22-30) mmol/L Anion Gap 20.0 H (5-15) MEQ/L BUN 43 H (7-17) mg/dL Creatinine 2.45 H (0.52-1.04) mg/dL Estimated GFR 20.8 ML/MIN Glucose 188 H (74-106) mg/dL POC Glucometer (74 to 106) mg/dL Lactic Acid (0.4-2.0) Calcium 9.6 (8.4-10.2) mg/dL Magnesium 2.3 (1.6-2.3) mg/dL Total Bilirubin 1.80 H (0.2-1.3) mg/dL AST 362 H (14-36) U/L ALT 151 H (0-35) U/L Alkaline Phosphatase 162 H (38-126) U/L Ammonia (9-30) umol/L Serum Total Protein 8.3 H (6.3-8.2) g/dL Albumin 4.4 (3.5-5.0) g/dL Urine Color (Yellow) Urine Appearance (Clear) Urine pH (4.6-8.0) Ur Specific [place] (1.005-1.030) Urine Protein (Negative) Urine Glucose (UA) (Negative) mg/dL Urine Ketones (Negative) Urine Blood (Negative) Urine Nitrite (Negative) Urine Bilirubin (Negative) Urine Urobilinogen (0.2) mg/dL Ur Leukocyte Esterase (Negative) U Hyaline Cast (Auto) (0-2) /LPF Urine Microscopic RBC (0-5) /HPF Urine Microscopic WBC (0-5) /HPF Ur Epithelial Cells (None Seen) /HPF Urine Bacteria (None Seen) /HPF Urine Culture Reflexed (NO) Urine Opiates Level (NEGATIVE) Ur Methadone (NEGATIVE) Urine Barbiturates (NEGATIVE) Ur Phencyclidine (PCP) (NEGATIVE) Urine Amphetamine (NEGATIVE) U Benzodiazepine Level (NEGATIVE) Urine Cocaine (NEGATIVE) Urine Marijuana (THC) (NEGATIVE) Slides for Path Review YES 11/14/25 11/14/25 11/14/25 Range/Units 12:03 14:03 17:36 WBC (3.98-10.04) x10^3/uL RBC (3.93-5.22) x10^6/uL Hgb (11.2-15.7) g/dL Hct (34.1-44.9) % MCV (79.4-94.8) fL MCH (25.6-32.2) pg MCHC (32.2-35.5) g/dL RDW (11.7-14.4) % Plt Count (182-369) x10^3/uL MPV (9.4-12.3) fL Gran % (34.0-71.1) % Immature Gran % (Auto) (0.001-0.429) % Nucleat RBC Rel Count (0.00-0.2) % Eos # (Auto) (0.04-0.36) x10^3/uL Immature Gran # (Auto) (0.001-0.031) x10^3u/L Absolute Lymphs (auto) (1.18-3.74) x10^3/uL Absolute Monos (auto) (0.24-0.86) x10^3/uL Absolute Nucleated RBC (0.00-0.012) x10^3u/L Lymphocytes % (19.3-51.7) % Monocytes % (4.7-12.5) % Eosinophils % (0.7-5.8) % Basophils % (0.1-1.2) % Absolute Granulocytes (1.56-6.13) x10^3/uL Basophils # (0.01-0.08) x10^3/uL PT (9.4-12.5) SECONDS INR (0.8-3.0) Sodium (135-145) mmol/L Potassium (3.5-5.1) mmol/L Chloride (98-107) mmol/L Carbon Dioxide (22-30) mmol/L Anion Gap (5-15) MEQ/L BUN (7-17) mg/dL Creatinine (0.52-1.04) mg/dL Estimated GFR ML/MIN Glucose (74-106) mg/dL POC Glucometer 155 H (74 to 106) mg/dL Lactic Acid 1.8 (0.4-2.0) Calcium (8.4-10.2) mg/dL Magnesium (1.6-2.3) mg/dL Total Bilirubin (0.2-1.3) mg/dL AST (14-36) U/L ALT (0-35) U/L Alkaline Phosphatase (38-126) U/L Ammonia < 9 L (9-30) umol/L Serum Total Protein (6.3-8.2) g/dL Albumin (3.5-5.0) g/dL Urine Color (Yellow) Urine Appearance (Clear) Urine pH (4.6-8.0) Ur Specific [place] (1.005-1.030) Urine Protein (Negative) Urine Glucose (UA) (Negative) mg/dL Urine Ketones (Negative) Urine Blood (Negative) Urine Nitrite (Negative) Urine Bilirubin (Negative) Urine Urobilinogen (0.2) mg/dL Ur Leukocyte Esterase (Negative) U Hyaline Cast (Auto) (0-2) /LPF Urine Microscopic RBC (0-5) /HPF Urine Microscopic WBC (0-5) /HPF Ur Epithelial Cells (None Seen) /HPF Urine Bacteria (None Seen) /HPF Urine Culture Reflexed (NO) Urine Opiates Level (NEGATIVE) Ur Methadone (NEGATIVE) Urine Barbiturates (NEGATIVE) Ur Phencyclidine (PCP) (NEGATIVE) Urine Amphetamine (NEGATIVE) U Benzodiazepine Level (NEGATIVE) Urine Cocaine (NEGATIVE) Urine Marijuana (THC) (NEGATIVE) Slides for Path Review Microbiology 04/12/25 12:03 Blood Culture Gram Stain - Preliminary Blood 04/12/25 11:55 Blood Culture Gram Stain - Preliminary Blood Accuchecks Date 04/12/25 Time 17:37 - Radiology Impressions Radiology Exams & Impressions: Radiology Procedures Category Date Time Status ABDOMEN AND PELVIS W/0 CONTRAS [CT] Stat Exams 04/12/25 14:28 Completed CHEST 1 VIEW (PORTABLE) Stat Exams 04/13/25 07:10 Ordered HEAD WITHOUT CONTRAST [CT] Stat Exams 04/12/25 11:30 Completed - Other Procedures and Tests Respiratory Therapy 04/12/25 19:34 Oxygen Nasal Cannula 2 lpm 04/12/25 21:12 BiPap/CPAP ROUTINE Respiratory Therapy Assessment DAILY Telemedicine Encounter - Telemedicine Encounter Telemedicine Encounter: "The entirety of this encounter was performed via Telemedicine" This visit was performed using real-time audio and video connection between my location and thepatients locationwith the assistance of a surrogateat the patients location. Written or verbal consent was obtained from the patient/guardian to perform this visit [email or web address] technology. Any patient questions regarding the telemedicine interaction were answered.
[2025-04-13 07:38] LABS: Calcium 8.2 mg/dL (8.4-10.2); Creatinine 1 2.24 mg/dL (0.52-1.04); EST GLOMERULAR FILTRATION RATE 23.2 ML/MIN; Glucose 146.0 mg/dL (74-106); NT PRO BNPII 550.0 pg/mL (<300); Potassium 3.4 mmol/L (3.5-5.1); SGOT/AST 186.0 U/L (14-36); SGPT/ALT 103.0 U/L (0-35); Total Protein 6.5 g/dL (6.3-8.2)
[2025-04-13 07:58] LABS: Carbon Dioxide 16.0 mmol/L (22-30)
--- NOTE | 2025-04-13 08:23 | XRAY ---
CLINICAL HISTORY: dyspnea COMPARISON: No prior studies are available for comparison. TECHNIQUE: An X-ray image of the chest is obtained in AP portable projection. FINDINGS: Pulmonary Parenchyma: Bilateral lower zone haziness, likely due to edema. Suspect of a right lower zone focal opacity, could be a vascular shadow due to rotation or an opacity. No evidence of pleural effusion or pleural thickening. Heart and Mediastinum: Heart size and shape are normal. No mediastinal widening or masses. No hilar or mediastinal lymphadenopathy. Bony Thorax: Bony thorax appears intact without fractures or deformities. Soft Tissues: Soft tissues overlying the chest wall are unremarkable. IMPRESSION: 1. Bilateral lower zone haziness, likely due to edema. 2. Suspect of a right lower zone focal opacity, could be a vascular shadow due to rotation or an opacity, need follow-up CXR. Electronically Signed by: Souleymane Love MD. (04/13/2025 08:21:24 EST)
[2025-04-13] MEDS: Advair Hfa 115/21 Common canister IH SCH (08:31)
[2025-04-13] MEDS: Spiriva 18 Mcg/Cap Inhaler IH SCH (08:32)
[2025-04-13] MEDS: DUONEB 0.5-3 MG/3 ml Neb IH PRN (09:13)
[2025-04-13 10:09] LABS: BAND 9 % (0.0-2.0); Total Cells Counted 100
[2025-04-13] MEDS: Klor Con PO ONE ×2 (11:06→13:56)
[2025-04-13] MEDS: solu-MEDROL 40 MG, Sterile H2O 10 ml 1 ML IV SCH (12:10)
[2025-04-13] MEDS: VANCOMYCIN 1 GRAM/200 ML BAG 1 GM/200 ML PIGGYBACK IV SCH (12:11)
[2025-04-13] MEDS: HEPARIN 5000 UNITS/0.5 ML (HIGH RISK MED) SQ SCH (12:11)
[2025-04-13] MEDS: Protonix 40MG Tablet PO SCH (12:11)
[2025-04-13] MEDS: NORVASC 5 MG PO SCH (12:11)
[2025-04-13 12:32] LABS: Calcium 8.3 mg/dL (8.4-10.2); Creatinine 1 1.94 mg/dL (0.52-1.04); EST GLOMERULAR FILTRATION RATE 27.5 ML/MIN; Glucose 146.0 mg/dL (74-106); Potassium 3.4 mmol/L (3.5-5.1); SGOT/AST 182.0 U/L (14-36); SGPT/ALT 111.0 U/L (0-35); Total Protein 6.7 g/dL (6.3-8.2)
[2025-04-13 12:44] LABS: Carbon Dioxide 14.0 mmol/L (22-30)
--- NOTE | 2025-04-13 12:57 | XRAY ---
CLINICAL HISTORY: dyspnea COMPARISON: CR same date, CT 02/03/2016 reviewed. TECHNIQUE: Contiguous axial CT images of the chest were acquired without administration of intravenous contrast. Coronal and sagittal reconstructions were obtained. One of the following dose reduction techniques were utilized for this exam: Automated exposure control, adjustment of the mA and/or kV according to patient size, use of iterative reconstruction. FINDINGS: Lungs: Interval resolution of previously noted subpleural 5.5 mm nodule in lateral basal segment of left lower lobe. Two small subpleural ground-glass densities in lateral basal segment of right lower lobe, stable. Mild thin fibroatelectatic changes in right middle lobe, left lingula and basal segments. Minimal interval progression. Mild posterior parietal pleural thickening along lower lobes. No pleural effusion. Mediastinum: Subcentimetric mediastinal nodes noted. The heart size is within normal limits. The thoracic aorta shows atherosclerotic changes. Trachea and Main Bronchi: The trachea and main bronchi are patent without evidence of obstruction or abnormality. Soft tissues: No evidence of soft tissue abnormalities. Bones: Degenerative changes in thoracic spine. Upper Abdomen: Previously noted large hiatus hernia with organo axial rotation is not visualized at current study. Small sliding hiatus hernia noted at present with interval postsurgical changes in stomach. Post cholecystectomy status. IMPRESSION: 1. No definite acute abnormality detected in CT chest at present. 2. Interval resolution of previously noted subpleural 5.5 mm nodule in lateral basal segment of left lower lobe. 3. Two small subpleural ground-glass densities in lateral basal segment of right lower lobe, stable. 4. Mild thin fibroatelectatic changes in right middle lobe, left lingula and basal segments. Minimal interval progression. Electronically Signed by: Souleymane Love MD. (04/13/2025 12:55:55 EST)
[2025-04-13] MEDS: Piperacillin/Tazobactam 2.25 GM 2.25 GM in Sodium Chloride 0.9% 100 ML IV SCH (13:56)
[2025-04-13] MEDS: Sodium Bicarbonate 50 MEQ/50 ML VIAL*** 150 MEQ in Dextrose 5%/Water IV Soln. 1000 ML 1... IV SCH (15:31)
[2025-04-13] MEDS ORDERED: VENTOLIN COMMON CANISTER IH PRN (16:06)
[2025-04-13] MEDS: Zofran 4 MG/2 ML VIAL IV PRN (17:54)
[2025-04-13 19:08] LABS: Calcium 8.4 mg/dL (8.4-10.2); Carbon Dioxide 17.0 mmol/L (22-30); Creatinine 1 1.67 mg/dL (0.52-1.04); EST GLOMERULAR FILTRATION RATE 33.0 ML/MIN; Glucose 223.0 mg/dL (74-106); Potassium 3.4 mmol/L (3.5-5.1); SGOT/AST 174.0 U/L (14-36); SGPT/ALT 115.0 U/L (0-35); Total Protein 6.6 g/dL (6.3-8.2)
[2025-04-13] MEDS: PHARMACY RENAL DOSING MC ONE ×2 (20:24)
[2025-04-13] MEDS: PHARMACY DOSING REQUIRED: VANCOMYCIN IV STA (20:24)
[2025-04-13] MEDS: Paxil 20 MG PO SCH (21:10)
[2025-04-13] MEDS: Singulair 10 MG PO SCH (21:10)
[2025-04-13] MEDS: ZOCOR 20MG PO SCH (21:13)
[2025-04-13] MEDS ORDERED: Lopressor 25MG Tab PO SCH (22:00)
[2025-04-13] MEDS ORDERED: NON-FORMULARY ITEM (Pravastatin Sodium [Pravachol] 20 MG Tablet) PO SCH (22:00)
[2025-04-13] MEDS ORDERED: XARELTO 10 MG TABLET PO SCH (22:00)
[2025-04-14 05:49] LABS: BASOPHIL % 0.3 % (0.1-1.2); Basophil (Absolute #) 0.04 x10^3/uL (0.01-0.08); Eosinophil (Absolute #) 0 x10^3/uL (0.04-0.36); Hematocrit 36.6 % (34.1-44.9); Hemoglobin 11.5 g/dL (11.2-15.7); IMMATURE GRAN # 0.18 x10^3u/L (0.001-0.031); IMMATURE GRAN % 1.4 % (0.001-0.429); Lymphocyte (Absolute #) 1.03 x10^3/uL (1.18-3.74); Mean Corpuscular Hemoglobin 28.0 pg (25.6-32.2); Mean Corpuscular Hgb Concent. 31.4 g/dL (32.2-35.5); Monocyte (Absolute #) 0.98 x10^3/uL (0.24-0.86); NUCLEATED RBC # 0.00 x10^3u/L (0.00-0.012); NUCLEATED RBC % 0.0 % (0.00-0.2); Platelet Count 155 x10^3/uL (182-369); Red Blood Count 4.11 x10^6/uL (3.93-5.22); White Blood Count 13.1 x10^3/uL (3.98-10.04)
[2025-04-14 06:18] LABS: Calcium 8.3 mg/dL (8.4-10.2); Carbon Dioxide 24.0 mmol/L (22-30); Creatinine 1 1.32 mg/dL (0.52-1.04); EST GLOMERULAR FILTRATION RATE 43.7 ML/MIN; Glucose 203.0 mg/dL (74-106); Potassium 3.4 mmol/L (3.5-5.1); SGOT/AST 144.0 U/L (14-36); SGPT/ALT 107.0 U/L (0-35); Total Protein 6.3 g/dL (6.3-8.2)
--- NOTE | 2025-04-14 07:15 | PCM.NOTE ---
Date and Time: 04/14/25 0708 Subjective Assessment: Ms. Jimenes is a 69-year-old female with a history of asthma, GERD, hypertension, hyperlipidemia, and depression who initially presented with acute confusion in the setting of sepsis originating from a urinary source. She arrived tachycardic and tachypneic with leukocytosis of 22.2, an elevated lactate of 3.4, metabolic acidosis with CO2 14, and acute kidney injury with creatinine 2.45, alongside significant pyuria, nitrites, and >50 hyaline casts on urinalysis. CT head showed only chronic senescent changes without an acute intracranial process. CT abdomen/pelvis showed fatty hepatomegaly, splenomegaly, bibasilar atelectasis, degenerative changes, and a T12 endplate fracture, without evidence of an acute abdominal source. Mauricio catheter was placed after bladder retention of 750 mL with absent spontaneous voiding. Blood cultures from grew gram-positive organisms , and urine culture grew Staph aureus, confirming a concordant UTI and bacteremia. The patient developed new pulmonary findings: chest X-ray showed a new patchy interstitial and alveolar opacity in the left lower lobe consistent with developing pneumonia, with new small left and tiny right pleural effusions and borderline cardiomegaly. CT chest on 04/13 showed no acute intrathoracic abnormality but noted chronic subpleural ground-glass densities and mild fibroatelectatic changes. Treated with vancomycin and Zosyn. Metabolic acidosis improved following bicarbonate infusion, with CO2 rising from 14 to 24 by 04/14, allowing discontinuation of the bicarbonate drip. Her TUCKER has continued to improve, with creatinine decreasing from 2.45 to 2.24 and now 1.32, and WBC has decreased to 13.1. She remains on broad-spectrum antibiotics pending final culture identification and will transition to targeted therapy once sensitivities are finalized. Patient has been accepted for transfer to [facility] and is currently on wait list. 04/14/25: The patient was seen at the bedside this morning and reports feeling significantly better compared to admission. She notes her breathing has improved and denies current dyspnea, chest pain, urinary discomfort, fever, or chills. She states her thinking feels back to normal, and her mentation on exam appears at baseline. She is aware of her improving labs, including the down- trending white count and creatinine, and expresses relief that her acidosis has resolved. She has no new complaints today but continues to feel profoundly weak; nursing confirms she remains an assist 3 for transfers. She lives alone and acknowledges she cannot return home safely in her current functional state. She is motivated for continued recovery and expresses clear interest in discharge to a rehabilitation facility once medically appropriate. - Review of Systems Constitutional: Weakness Eyes: No Symptoms Ears, Nose, & Throat: No Symptoms Respiratory: Cough, Short Of Breath Cardiac: No Symptoms Abdominal/Gastrointestinal: No Symptoms Genitourinary Symptoms: No Symptoms Musculoskeletal: Back Pain Skin: No Symptoms Neurological: No Symptoms Psychological: No Symptoms Endocrine: No Symptoms Hematologic/Lymphatic: No Symptoms Immunological/Allergic: No Symptoms Objective Exam Neurologic Exam: alert, oriented x 3, cooperative Skin Exam: normal color Eye Exam: PERRL Ears, Nose, Throat Exam: normal ENT inspection Neck Exam: normal inspection Respiratory Exam: crackles/rales Cardiovascular Exam: regular rate/rhythm, normal heart sounds Gastrointestinal/Abdomen Exam: soft, normal bowel sounds Extremity Exam: swelling (BLE trace) Back Exam: normal inspection Pelvic Exam: deferred, other (FC) Rectal Exam: deferred Objective Data Vital Signs: Vital Signs - 24 hr Temp Pulse Resp BP Pulse Ox 04/14/25 03:33 98.1 F 80 20 143/78 92 L 04/13/25 23:35 97.9 F 79 20 141/68 91 L 04/13/25 19:26 97.9 F 91 H 20 144/74 94 L 04/13/25 18:15 90 20 95 04/13/25 17:08 98.2 F 94 H 24 135/80 93 L 04/13/25 12:16 98.1 F 102 H 25 H 141/82 92 L 04/13/25 09:13 94 H 20 96 04/13/25 08:32 96 H 20 96 04/13/25 07:09 97.9 F 94 H 23 129/72 94 L Pain Assessment - Last Documented Pain Intensity 0 Pain Scale Used 0-10 Pain Scale Intake and Output: Intake & Output 04/11/25 04/12/25 04/13/25 04/14/25 11:59 11:59 11:59 11:59 Intake Total 2802 2910 Output Total 1500 1650 Balance 1302 1260 Weight 133 kg 137.5 kg Lab Results: Lab Results-Last 24 Hours 04/12/25 04/12/25 04/13/25 Range/Units 11:30 11:48 07:05 WBC 14.6 H (3.98-10.04) x10^3/uL RBC 4.36 (3.93-5.22) x10^6/uL Hgb 12.4 (11.2-15.7) g/dL Hct 40.2 (34.1-44.9) % MCV 92.2 (79.4-94.8) fL MCH 28.4 (25.6-32.2) pg MCHC 30.8 L (32.2-35.5) g/dL RDW 13.6 (11.7-14.4) % Plt Count 148 L D (182-369) x10^3/uL MPV 12.1 (9.4-12.3) fL Gran % (34.0-71.1) % Immature Gran % (Auto) (0.001-0.429) % Nucleat RBC Rel Count (0.00-0.2) % Eos # (Auto) (0.04-0.36) x10^3/uL Immature Gran # (Auto) (0.001-0.031) x10^3u/L Absolute Lymphs (auto) (1.18-3.74) x10^3/uL Absolute Monos (auto) (0.24-0.86) x10^3/uL Absolute Nucleated RBC (0.00-0.012) x10^3u/L Lymphocytes % (19.3-51.7) % Monocytes % (4.7-12.5) % Eosinophils % (0.7-5.8) % Basophils % (0.1-1.2) % Absolute Granulocytes (1.56-6.13) x10^3/uL Segmented Neutrophils 76 H (34.0-71.1) % Band Neutrophils 9 H (0.0-2.0) % Lymphocytes (Manual) 9 L (19.3-51.7) % Monocytes (Manual) 6 (4.7-12.5) % Basophils # (0.01-0.08) x10^3/uL Platelet Estimate DECREASED (NORMAL) Sodium (135-145) mmol/L Potassium (3.5-5.1) mmol/L Chloride (98-107) mmol/L Carbon Dioxide (22-30) mmol/L Anion Gap (5-15) MEQ/L BUN (7-17) mg/dL Creatinine (0.52-1.04) mg/dL Estimated GFR ML/MIN Glucose (74-106) mg/dL Hemoglobin A1c (4.5-6.0) % Calcium (8.4-10.2) mg/dL Total Bilirubin (0.2-1.3) mg/dL AST (14-36) U/L ALT (0-35) U/L Alkaline Phosphatase (38-126) U/L NT-Pro-B Natriuret Pep (<300) pg/mL Serum Total Protein (6.3-8.2) g/dL Albumin (3.5-5.0) g/dL Procalcitonin 4.120 H* (0.030-0.080) ng/mL Urine Opiates Level NEGATIVE (NEGATIVE) Ur Methadone NEGATIVE (NEGATIVE) Urine Barbiturates NEGATIVE (NEGATIVE) Ur Phencyclidine (PCP) NEGATIVE (NEGATIVE) Urine Amphetamine NEGATIVE (NEGATIVE) U Benzodiazepine Level NEGATIVE (NEGATIVE) Urine Cocaine NEGATIVE (NEGATIVE) Urine Marijuana (THC) NEGATIVE (NEGATIVE) 04/13/25 04/13/25 04/13/25 Range/Units 07:05 07:05 12:15 WBC (3.98-10.04) x10^3/uL RBC (3.93-5.22) x10^6/uL Hgb (11.2-15.7) g/dL Hct (34.1-44.9) % MCV (79.4-94.8) fL MCH (25.6-32.2) pg MCHC (32.2-35.5) g/dL RDW (11.7-14.4) % Plt Count (182-369) x10^3/uL MPV (9.4-12.3) fL Gran % (34.0-71.1) % Immature Gran % (Auto) (0.001-0.429) % Nucleat RBC Rel Count (0.00-0.2) % Eos # (Auto) (0.04-0.36) x10^3/uL Immature Gran # (Auto) (0.001-0.031) x10^3u/L Absolute Lymphs (auto) (1.18-3.74) x10^3/uL Absolute Monos (auto) (0.24-0.86) x10^3/uL Absolute Nucleated RBC (0.00-0.012) x10^3u/L Lymphocytes % (19.3-51.7) % Monocytes % (4.7-12.5) % Eosinophils % (0.7-5.8) % Basophils % (0.1-1.2) % Absolute Granulocytes (1.56-6.13) x10^3/uL Segmented Neutrophils (34.0-71.1) % Band Neutrophils (0.0-2.0) % Lymphocytes (Manual) (19.3-51.7) % Monocytes (Manual) (4.7-12.5) % Basophils # (0.01-0.08) x10^3/uL Platelet Estimate (NORMAL) Sodium 134 L 131 L (135-145) mmol/L Potassium 3.4 L 3.4 L (3.5-5.1) mmol/L Chloride 107 105 (98-107) mmol/L Carbon Dioxide 16 L* 14 L* (22-30) mmol/L Anion Gap 14.5 15.4 H (5-15) MEQ/L BUN 50 H 46 H (7-17) mg/dL Creatinine 2.24 H 1.94 H (0.52-1.04) mg/dL Estimated GFR 23.2 27.5 ML/MIN Glucose 146 H 146 H (74-106) mg/dL Hemoglobin A1c 4.99 (4.5-6.0) % Calcium 8.2 L 8.3 L (8.4-10.2) mg/dL Total Bilirubin 1.50 H 1.40 H (0.2-1.3) mg/dL AST 186 H 182 H (14-36) U/L ALT 103 H 111 H (0-35) U/L Alkaline Phosphatase 126 135 H (38-126) U/L NT-Pro-B Natriuret Pep 550 (<300) pg/mL Serum Total Protein 6.5 6.7 (6.3-8.2) g/dL Albumin 3.3 L 3.4 L (3.5-5.0) g/dL Procalcitonin (0.030-0.080) ng/mL Urine Opiates Level (NEGATIVE) Ur Methadone (NEGATIVE) Urine Barbiturates (NEGATIVE) Ur Phencyclidine (PCP) (NEGATIVE) Urine Amphetamine (NEGATIVE) U Benzodiazepine Level (NEGATIVE) Urine Cocaine (NEGATIVE) Urine Marijuana (THC) (NEGATIVE) 04/13/25 04/14/25 04/14/25 Range/Units 18:50 05:45 05:45 WBC 13.1 H (3.98-10.04) x10^3/uL RBC 4.11 (3.93-5.22) x10^6/uL Hgb 11.5 (11.2-15.7) g/dL Hct 36.6 (34.1-44.9) % MCV 89.1 (79.4-94.8) fL MCH 28.0 (25.6-32.2) pg MCHC 31.4 L (32.2-35.5) g/dL RDW 13.8 (11.7-14.4) % Plt Count 155 L (182-369) x10^3/uL MPV 12.8 H (9.4-12.3) fL Gran % 83.0 H (34.0-71.1) % Immature Gran % (Auto) 1.4 H (0.001-0.429) % Nucleat RBC Rel Count 0.0 (0.00-0.2) % Eos # (Auto) 0 L (0.04-0.36) x10^3/uL Immature Gran # (Auto) 0.18 H (0.001-0.031) x10^3u/L Absolute Lymphs (auto) 1.03 L (1.18-3.74) x10^3/uL Absolute Monos (auto) 0.98 H (0.24-0.86) x10^3/uL Absolute Nucleated RBC 0.00 (0.00-0.012) x10^3u/L Lymphocytes % 7.8 L (19.3-51.7) % Monocytes % 7.5 (4.7-12.5) % Eosinophils % 0.0 L (0.7-5.8) % Basophils % 0.3 (0.1-1.2) % Absolute Granulocytes 10.90 H (1.56-6.13) x10^3/uL Segmented Neutrophils (34.0-71.1) % Band Neutrophils (0.0-2.0) % Lymphocytes (Manual) (19.3-51.7) % Monocytes (Manual) (4.7-12.5) % Basophils # 0.04 (0.01-0.08) x10^3/uL Platelet Estimate (NORMAL) Sodium 130 L 134 L (135-145) mmol/L Potassium 3.4 L 3.4 L (3.5-5.1) mmol/L Chloride 103 102 (98-107) mmol/L Carbon Dioxide 17 L 24 (22-30) mmol/L Anion Gap 13.9 11.4 (5-15) MEQ/L BUN 40 H 36 H (7-17) mg/dL Creatinine 1.67 H 1.32 H (0.52-1.04) mg/dL Estimated GFR 33.0 43.7 ML/MIN Glucose 223 H 203 H (74-106) mg/dL Hemoglobin A1c (4.5-6.0) % Calcium 8.4 8.3 L (8.4-10.2) mg/dL Total Bilirubin 1.20 0.90 (0.2-1.3) mg/dL AST 174 H 144 H (14-36) U/L ALT 115 H 107 H (0-35) U/L Alkaline Phosphatase 139 H 127 H (38-126) U/L NT-Pro-B Natriuret Pep (<300) pg/mL Serum Total Protein 6.6 6.3 (6.3-8.2) g/dL Albumin 3.3 L 3.2 L (3.5-5.0) g/dL Procalcitonin (0.030-0.080) ng/mL Urine Opiates Level (NEGATIVE) Ur Methadone (NEGATIVE) Urine Barbiturates (NEGATIVE) Ur Phencyclidine (PCP) (NEGATIVE) Urine Amphetamine (NEGATIVE) U Benzodiazepine Level (NEGATIVE) Urine Cocaine (NEGATIVE) Urine Marijuana (THC) (NEGATIVE) Radiology Exams: Radiology Procedures Category Date Time Status ABDOMEN AND PELVIS W/0 CONTRAS [CT] Stat Exams 04/12/25 14:28 Completed CHEST 1 VIEW (PORTABLE) Stat Exams 04/13/25 07:10 Completed CHEST WITHOUT CONTRAST [CT] Stat Exams 04/13/25 09:44 Completed ECHO W/2D AND DOPPLER [US] Routine Exams 04/15/25 07:00 Ordered HEAD WITHOUT CONTRAST [CT] Stat Exams 04/12/25 11:30 Completed Medications: Medications Generic Name Dose Route Start Last Admin Trade Name Freq PRN Reason Stop Dose Admin Acetaminophen 650 mg 04/12/25 19:34 04/12/25 20:34 Acetaminophen 325 Mg Tablet PO 05/12/25 19:33 650 mg Q4H PRN PRN Administration PAIN, FEVER, HEADACHE Albuterol Sulfate 2 puff 04/13/25 16:06 Albuterol Common Canister Inhaler 05/13/25 16:05 Q6HPRN PRN wheezing Albuterol/Ipratropium 3 ml 04/13/25 08:45 04/13/25 09:13 Ipratropium/Albuterol Sulfate 3 Ml Ampul.Neb 05/13/25 08:44 3 ml Q4HPRN PRN Administration SHORTNESS OF BREATH/WHEEZING Amlodipine Besylate 5 mg 04/13/25 10:00 04/13/25 12:11 Amlodipine Besylate 5 Mg Tablet PO 05/13/25 09:59 5 mg DAILY VADIM Administration Methylprednisolone Sodium 0 mg 04/13/25 10:00 04/13/25 21:09 Succinate 40 mg/ Sterile Water IV 05/13/25 09:59 40 mg 1 ml Q12HT VADIM Administration Device 1 04/15/25 09:30 Therapuetic Drug Level Monitor Each IJ 04/15/25 09:31 1XONLY ONE Heparin Sodium (Beef Lung) 5,000 unit 04/13/25 10:00 04/13/25 21:09 Heparin 5000 Units/0.5 Ml 5,000 Unit/0.5 Ml Syr SQ 05/13/25 09:59 5,000 unit BID VADIM Administration Piperacillin Sod/Tazobactam 100 mls @ 200 mls/hr 04/13/25 12:00 04/14/25 05:32 Sod 2.25 gm/ Sodium Chloride IV 05/13/25 11:59 200 mls/hr Q6HT VADIM Administration Vancomycin HCl 1 gm in 200 mls @ 125 mls/hr 04/13/25 10:00 04/13/25 12:11 Vancomycin 1 Gram/200 Ml Bag IV 05/13/25 09:59 125 mls/hr DAILY VADIM Administration Sodium Bicarbonate 150 meq/ 1,150 mls @ 100 mls/hr 04/13/25 13:15 04/14/25 03:44 Dextrose IV 05/13/25 13:14 100 mls/hr .[id number] VADIM 100 mls/hr Administration Lactobacillus Acidophilus 1 tab 04/14/25 10:00 Lactobacillus Acidophilus 1 Tab Tablet PO 05/14/25 09:59 DAILY VADIM Loratadine 10 mg 04/14/25 10:00 Loratadine 10 Mg Tablet PO 05/14/25 09:59 DAILY VADIM Montelukast Sodium 10 mg 04/13/25 22:00 04/13/25 21:10 Montelukast Sodium 10 Mg Tablet PO 05/13/25 21:59 10 mg HS VADIM Administration Non-Formulary Medication 1 puff 04/14/25 10:00 Budesonide/Glycopyr/Formoterol [Breztri Aerosphere Inhaler] 05/14/25 09:59 DAILY VADIM Non-Formulary Medication 2 sprays 04/13/25 16:15 04/14/25 03:45 Ipratropium Holt [Ipratropium Holt] NS 05/13/25 16:14 Not Given Q12H VADIM Ondansetron HCl 4 mg 04/12/25 19:34 04/13/25 17:54 Ondansetron Hcl 4 Mg/2 Ml Vial IV 05/12/25 19:33 4 mg Q6H PRN PRN Administration NAUSEA/VOMITING Pantoprazole Sodium 40 mg 04/13/25 10:00 04/13/25 12:11 Protonix (Pantoprazole) 40 Mg Tablet PO 05/13/25 09:59 40 mg DAILY VADIM Administration Paroxetine HCl 20 mg 04/13/25 22:00 04/13/25 21:10 Paroxetine Hcl 20 Mg Tablet PO 05/13/25 21:59 20 mg HS VADIM Administration Fluticasone/Salmeterol 2 puff 04/13/25 07:00 04/13/25 18:15 Fluticasone/Salmeterol 115/21 60 Puff Aer.W.Adap 05/13/25 06:59 2 puff BIDRT VADIM Administration Simvastatin 20 mg 04/13/25 22:00 04/13/25 21:13 Simvastatin 20 Mg Tablet PO 05/13/25 21:59 20 mg HS VADIM Administration Tiotropium Holt 1 ea 04/13/25 10:00 04/13/25 08:32 Tiotropium Holt 18 Mcg/Cap Inhaler IH 05/13/25 09:59 1 ea DAILY VADIM Administration Discontinued Medications Generic Name Dose Route Start Last Admin Trade Name Jerryq PRN Reason Stop Dose Admin Sodium Chloride 1,000 mls @ 100 mls/hr 04/12/25 11:30 04/12/25 11:56 Sodium Chloride 0.9% 1000 Ml IV 05/12/25 11:29 100 mls/hr .Q10H VADIM Administration Piperacillin Sod/Tazobactam 100 mls @ 200 mls/hr 04/12/25 13:58 04/12/25 15:05 Sod 3.375 gm/ Sodium Chloride IV 04/12/25 14:27 Infused STAT STA Infusion Sodium Chloride Confirm 04/12/25 14:08 Sodium Chloride 0.9% 250 Ml Administered 04/12/25 14:09 Dose 250 mls @ ud IV .STK-MED ONE Sodium Chloride Confirm 04/12/25 14:09 Sodium Chloride 0.9% Administered 04/12/25 14:10 Dose 100 mls @ ud .ROUTE .STK-MED ONE Sodium Chloride Confirm 04/12/25 14:13 Sodium Chloride 0.9% 500 Ml Administered 04/12/25 14:14 Dose 500 mls @ ud IV .STK-MED ONE Sodium Chloride Confirm 04/12/25 14:13 Sodium Chloride 0.9% Administered 04/12/25 14:14 Dose 100 mls @ ud .ROUTE .STK-MED ONE Sodium Chloride 1,000 mls @ 75 mls/hr 04/12/25 19:34 04/13/25 03:20 Sodium Chloride 0.9% 1000 Ml IV 05/12/25 19:33 75 mls/hr .[id number] VADIM Administration Piperacillin Sod/Tazobactam 100 mls @ 200 mls/hr 04/13/25 00:00 04/13/25 05:24 Sod 3.375 gm/ Sodium Chloride IV 04/16/25 00:00 200 mls/hr Q6HT VADIM Administration Sodium Chloride 1,000 mls @ 999 mls/hr 04/12/25 20:21 04/12/25 20:35 Sodium Chloride 0.9% 1000 Ml IV 04/12/25 21:21 999 mls/hr .Q1H1M STA Administration Sodium Chloride 500 mls @ 500 mls/hr 04/12/25 21:46 04/12/25 21:48 Sodium Chloride 0.9% 500 Ml IV 04/12/25 22:45 500 mls/hr .Q1H ONE Administration Sodium Chloride Confirm 04/12/25 23:30 Sodium Chloride 0.9% Administered 04/12/25 23:31 Dose 100 mls @ ud .ROUTE .STK-MED ONE Sodium Chloride Confirm 04/13/25 05:22 Sodium Chloride 0.9% Administered 04/13/25 05:23 Dose 100 mls @ ud .ROUTE .STK-MED ONE Piperacillin Sod/Tazobactam 100 mls @ 200 mls/hr 04/13/25 08:00 Sod 4.5 gm/ Sodium Chloride IV 05/13/25 07:59 Q8HT [facility] Ibuprofen 800 mg 04/13/25 07:18 Ibuprofen 400 Mg Tablet PO 05/13/25 07:17 Q6H PRN PRN PAIN Labetalol HCl 10 mg 04/12/25 12:29 04/12/25 12:32 Labetalol Hcl 20 Mg/4 Ml Disp.Syringe IV 04/12/25 12:30 10 mg STAT ONE Administration Labetalol HCl Confirm 04/12/25 12:31 Labetalol Hcl 20 Mg/4 Ml Disp.Syringe Administered 04/12/25 12:32 Dose 20 mg IV .STK-MED ONE Metoprolol Tartrate 25 mg 04/13/25 22:00 Metoprolol Tartrate 25 Mg Tab PO 05/13/25 21:59 HS [facility] Non-Formulary Medication 10.2 gm 04/13/25 07:06 Budesonide/Formoterol Fumarate [Symbicort 160-4.5 Mcg Inhaler] IH BID PRN SHORTNESS OF BREATH Non-Formulary Medication 1 each 04/13/25 07:09 04/13/25 20:24 Pharmacy Dose Request: Vancomycin 1 Each IV 04/13/25 07:10 Not Given STAT STA Non-Formulary Medication 1 each 04/13/25 07:09 04/13/25 20:24 Pharmacy Dosing Request 04/13/25 07:10 Not Given STAT ONE Non-Formulary Medication 1 each 04/13/25 07:09 04/13/25 20:24 Pharmacy Dosing Request 04/13/25 07:10 Not Given STAT ONE Piperacillin Sod/Tazobactam Sod Confirm 04/12/25 14:05 Piperacillin/Tazobactam Sodium 3.375 Gm Vial Administered 04/12/25 14:06 Dose 3.375 gm IV .STK-MED ONE Piperacillin Sod/Tazobactam Sod Confirm 04/12/25 23:30 Piperacillin/Tazobactam Sodium 3.375 Gm Vial Administered 04/12/25 23:31 Dose 3.375 gm IV .STK-MED ONE Piperacillin Sod/Tazobactam Sod Confirm 04/13/25 05:22 Piperacillin/Tazobactam Sodium 3.375 Gm Vial Administered 04/13/25 05:23 Dose 3.375 gm IV .STK-MED ONE Potassium Chloride 20 meq 04/13/25 09:30 04/13/25 11:06 Potassium Chloride Tab 10 Meq Tab PO 04/13/25 09:31 20 meq STAT ONE Administration Potassium Chloride 20 meq 04/13/25 13:14 04/13/25 13:56 Potassium Chloride Tab 10 Meq Tab PO 04/13/25 13:15 20 meq STAT ONE Administration Rivaroxaban 10 mg 04/13/25 22:00 Rivaroxaban 10 Mg Tablet PO 05/13/25 21:59 HS VADIM Tramadol HCl 50 mg 04/13/25 07:06 Tramadol Hcl 50 Mg Tablet PO 05/13/25 07:05 Q6HPRN PRN PAIN Assessment/Plan (1) Sepsis Current Visit: Yes Status: Acute Assessment & Plan: -Supported by initial leukocytosis of 22.2, tachycardia, tachypnea, lactate 3.4 (now normalized), gram-positive cocci on blood cultures 2, and urine culture positive for Staph aureus. -CXR showing new LLL interstitial/alveolar opacity with new small left effusion and tiny right effusion supports concurrent pneumonia; CT chest showed no acute abnormality but chronic ground-glass densities and mild fibroatelectasis that do not contradict the diagnosis; CT abdomen/pelvis showed fatty hepatomegaly, splenomegaly, bibasilar atelectasis, degenerative changes, and a T12 endplate fracture, without evidence of an acute abdominal source. -Continue vancomycin + Zosyn until final cultures; narrow once sensitivities are back. -WBC trending down (22.2 - 13.1), lactate normalized, Cr improving trend -Monitor for respiratory changes given LLL pneumonia and small pleural effusions. -Gentle hydration -Afebrile -Supplemental oxygen with goal so2>92 -Blood cultures pending with gram + ID -Ucult with staphylococcus aureus -Supportive care: oxygen PRN, bronchodilators for wheezing, repeat imaging if clinical status changes. -Transfer to higher level of care for ID and TREY at [facility] when bed available. (2) Pneumonia Current Visit: Yes Status: Acute Assessment & Plan: -CXR showing new LLL interstitial/alveolar opacity with new small left effusion and tiny right effusion supports concurrent pneumonia; CT chest showed no acute abnormality but chronic ground-glass densities and mild fibroatelectasis that do not contradict the diagnosis -Continue vancomycin + Zosyn until culture finalization -Supportive care: bronchodilators for wheezes, pulmonary hygiene, oxygen to maintain adequate saturation. Code(s): J18.9 - PNEUMONIA, UNSPECIFIED ORGANISM (3) TUCKER (acute kidney injury) Current Visit: Yes Status: Acute Assessment & Plan: -Initial Cr 2.45 with >50 hyaline casts and retention of 750 mL, now improved to 1.32 after fluids and source control; Mauricio placed for urinary retention -Continue renal-dose medication adjustments; avoid nephrotoxins; trend daily CMP. -Monitor urine output hourly; maintain euvolemia given pneumonia, pleural effusions, and borderline cardiomegaly. Code(s): N17.9 - ACUTE KIDNEY FAILURE, UNSPECIFIED (4) Metabolic acidosis Current Visit: Yes Status: Acute Assessment & Plan: -CO2 fell to 14 on 04/13 during early sepsis and TUCKER; bicarbonate drip started appropriately. -CO2 improved to 24 by 04/14, indicating resolution; bicarbonate drip d iscontinued. Code(s): E87.20 - ACIDOSIS, UNSPECIFIED (5) Acute metabolic encephalopathy Current Visit: Yes Status: Acute Assessment & Plan: -Correlated with sepsis, TUCKER, acidosis, infection, hepatic injury; CT head negative for acute process. -Now at baseline mentation Code(s): G93.41 - METABOLIC ENCEPHALOPATHY (6) Transaminitis Current Visit: Yes Status: Acute Assessment & Plan: -Elevated initial AST 362, ALT 151, ALK-PHOS 162, bilirubin 1.8; corresponds with sepsis-related hepatocellular injury and fatty hepatomegaly on CT -LFTs improving -trend -Avoid hepatotoxic medications (hold statin); evaluate for further decline. Code(s): R74.01 - ELEVATION OF LEVELS OF LIVER TRANSAMINASE LEVELS (7) Urinary retention Current Visit: Yes Status: Acute Assessment & Plan: -750 mL retained with absent spontaneous voiding; Mauricio placed. -Continue monitoring for adequate drainage; evaluate need for trial of void once infection stabilizes. Code(s): R33.9 - RETENTION OF URINE, UNSPECIFIED (8) Asthma Current Visit: Yes Status: Acute Assessment & Plan: -Continue inhalers; PRN bronchodilators especially with wheezing on exam; monitor in context of pneumonia. Code(s): J45.909 - UNSPECIFIED ASTHMA, UNCOMPLICATED (9) HTN (hypertension) Current Visit: Yes Status: Acute Assessment & Plan: -Avoid aggressive BP lowering during sepsis recovery; hold NANY/ARB until TUCKER fully resolves. Code(s): I10 - ESSENTIAL (PRIMARY) HYPERTENSION (10) HLD (hyperlipidemia) Current Visit: Yes Status: Acute Assessment & Plan: -Hold statin due to elevated LFTs; resume when hepatic profile normalizes Code(s): E78.5 - HYPERLIPIDEMIA, UNSPECIFIED (11) GERD (gastroesophageal reflux disease) Current Visit: Yes Status: Acute Assessment & Plan: -Continue PPI; CT abdomen and chest confirming stable hiatal hernia anatomy -Patient reports upcoming EGD- unsure of date Code(s): K21.9 - GASTRO-ESOPHAGEAL REFLUX DISEASE WITHOUT ESOPHAGITIS (12) Hiatal hernia Current Visit: Yes Status: Acute Assessment & Plan: -see GERD Code(s): K44.9 - DIAPHRAGMATIC HERNIA WITHOUT OBSTRUCTION OR GANGRENE (13) Depression Current Visit: Yes Status: Acute Assessment & Plan: -continue home paxil Code(s): F32.A - DEPRESSION, UNSPECIFIED (14) Closed T12 fracture Current Visit: Yes Status: Acute Assessment & Plan: -Found on CT; no neuro deficits or red flags; age indeterminate -Manage with renal-safe pain control; avoid NSAIDs. -Outpatient spine follow-up when medically stable. VTE: Heparin PPI: protonix Dispo: 2-3 days Plan of care time spent > 40 mins Code status: Full code Code(s): S22.089A - UNSP FRACTURE OF T11-T12 VERTEBRA, INIT FOR CLOS FX
[2025-04-14] MEDS: Acidophilus TABLET PO SCH (08:50)
[2025-04-14] MEDS: CLARITIN 10 MG PO SCH (08:50)
[2025-04-14 09:00] VITALS: RESP 18
[2025-04-14] MEDS ORDERED: MEDICATION INTERVENTION MC SCH (09:00)
[2025-04-14] MEDS ORDERED: NON-FORMULARY ITEM (Budesonide/Glycopyr/Formoterol [Breztri Aerosphere Inhaler] 10.7 GM Hf IH SCH (10:00)
--- NOTE | 2025-04-14 10:34 | PCM.DS ---
Discharge Summary Date of Admission: 04/12/25 19:04 Date of Discharge: 04/14/25 Admitting Physician: TORRI SOLO MD Primary Care Provider: HARESH FREIRE JR Allergies Allergies No Known Drug Allergies Allergy (Verified 04/11/19 08:12) Hospital Summary - Hospital Course Hospital Course: Ms. Jimenes is a 69 year old female with a pmhx of asthma, GERD, hypertension, hyperlipidemia, depression, and chronic degenerative spine disease who presented with acute confusion and was found to be septic from a confirmed Staphylococcus aureus bacteremia originating from a urinary source. Initial labs showed WBC 22.2, lactate 3.4, CO2 14, and creatinine 2.45, with urinalysis demonstrating nitrites, moderate leukocytes, >50 hyaline casts, and 2150 WBCs, consistent with a severe urinary infection complicated by bacteremia and early TUCKER. CT head revealed only chronic senescent changes without acute intracranial abnormality. CT abdomen/pelvis showed fatty hepatomegaly, splenomegaly, bibasilar atelectasis, osteopenia, degenerative spine changes, and a closed T12 vertebral endplate fracture of likely chronic etiology, with no acute abdominal source identified. A Mauricio catheter was placed after urinary retention of 750 mL. Blood cultures from 04/14 grew gram-positive cocci consistent with Staphylococcus aureus in both paired sets, and urine culture also grew Staph aureus, confirming concordant infection. CXR demonstrated a new [id number] interstitial and alveolar opacity consistent with developing pneumonia, small left and tiny right pleural effusions, and borderline cardiomegaly. CT chest on 04/13 showed no acute abnormality but did note resolved prior pulmonary nodule, stable subpleural ground-glass densities, and mild fibroatelectasis. The patient initially developed metabolic acidosis with CO2 14 and was started on a bicarbonate drip, which was later discontinued after CO2 normalized to 24. With IV fluids and antibiotics, creatinine improved to 1.32 and WBC to 13.1. She has remained hemodynamically stable but requires transfer to a higher level of care for infectious disease consultation, TREY to evaluate for infective endocarditis, and management of Staph aureus bacteremia. At the time of transfer, she is receiving vancomycin and Zosyn, which will continue until final culture sensitivities allow narrowing. I spent45 minutes [id number] with the patient on the day of discharge performing discharge exam, discussing hospital stay and discharge instructions with patient and caregivers, preparation of discharge records, prescriptions & referral forms and addressing any questions/concerns the patient had as documented above. - Vitals & Intake/Output Vital Signs: Vital Signs Temperature 97.9 F 04/14/25 08:40 Pulse Rate 78 04/14/25 08:45 Respiratory Rate 18 04/14/25 08:45 Blood Pressure 141/69 04/14/25 08:40 O2 Sat by Pulse Oximetry 91 L 04/14/25 08:45 Intake & Output: Intake & Output 04/11/25 04/12/25 04/13/25 04/14/25 11:59 11:59 11:59 11:59 Intake Total 2802 3150 Output Total 1500 1650 Balance 1302 1500 Weight 133 kg 137.5 kg 137 kg - Lab Result Diagrams: 04/14/25 05:45 04/14/25 05:45 Lab Results-Last 24 Hrs: Lab Results-Last 24 Hours 04/12/25 04/13/25 04/13/25 Range/Units 11:30 07:05 12:15 WBC (3.98-10.04) x10^3/uL RBC (3.93-5.22) x10^6/uL Hgb (11.2-15.7) g/dL Hct (34.1-44.9) % MCV (79.4-94.8) fL MCH (25.6-32.2) pg MCHC (32.2-35.5) g/dL RDW (11.7-14.4) % Plt Count (182-369) x10^3/uL MPV (9.4-12.3) fL Gran % (34.0-71.1) % Immature Gran % (Auto) (0.001-0.429) % Nucleat RBC Rel Count (0.00-0.2) % Eos # (Auto) (0.04-0.36) x10^3/uL Immature Gran # (Auto) (0.001-0.031) x10^3u/L Absolute Lymphs (auto) (1.18-3.74) x10^3/uL Absolute Monos (auto) (0.24-0.86) x10^3/uL Absolute Nucleated RBC (0.00-0.012) x10^3u/L Lymphocytes % (19.3-51.7) % Monocytes % (4.7-12.5) % Eosinophils % (0.7-5.8) % Basophils % (0.1-1.2) % Absolute Granulocytes (1.56-6.13) x10^3/uL Basophils # (0.01-0.08) x10^3/uL Sodium 131 L (135-145) mmol/L Potassium 3.4 L (3.5-5.1) mmol/L Chloride 105 (98-107) mmol/L Carbon Dioxide 14 L* (22-30) mmol/L Anion Gap 15.4 H (5-15) MEQ/L BUN 46 H (7-17) mg/dL Creatinine 1.94 H (0.52-1.04) mg/dL Estimated GFR 27.5 ML/MIN Glucose 146 H (74-106) mg/dL Hemoglobin A1c 4.99 (4.5-6.0) % Calcium 8.3 L (8.4-10.2) mg/dL Total Bilirubin 1.40 H (0.2-1.3) mg/dL AST 182 H (14-36) U/L ALT 111 H (0-35) U/L Alkaline Phosphatase 135 H (38-126) U/L Serum Total Protein 6.7 (6.3-8.2) g/dL Albumin 3.4 L (3.5-5.0) g/dL Urine Opiates Level NEGATIVE (NEGATIVE) Ur Methadone NEGATIVE (NEGATIVE) Urine Barbiturates NEGATIVE (NEGATIVE) Ur Phencyclidine (PCP) NEGATIVE (NEGATIVE) Urine Amphetamine NEGATIVE (NEGATIVE) U Benzodiazepine Level NEGATIVE (NEGATIVE) Urine Cocaine NEGATIVE (NEGATIVE) Urine Marijuana (THC) NEGATIVE (NEGATIVE) 04/13/25 04/14/25 04/14/25 Range/Units 18:50 05:45 05:45 WBC 13.1 H (3.98-10.04) x10^3/uL RBC 4.11 (3.93-5.22) x10^6/uL Hgb 11.5 (11.2-15.7) g/dL Hct 36.6 (34.1-44.9) % MCV 89.1 (79.4-94.8) fL MCH 28.0 (25.6-32.2) pg MCHC 31.4 L (32.2-35.5) g/dL RDW 13.8 (11.7-14.4) % Plt Count 155 L (182-369) x10^3/uL MPV 12.8 H (9.4-12.3) fL Gran % 83.0 H (34.0-71.1) % Immature Gran % (Auto) 1.4 H (0.001-0.429) % Nucleat RBC Rel Count 0.0 (0.00-0.2) % Eos # (Auto) 0 L (0.04-0.36) x10^3/uL Immature Gran # (Auto) 0.18 H (0.001-0.031) x10^3u/L Absolute Lymphs (auto) 1.03 L (1.18-3.74) x10^3/uL Absolute Monos (auto) 0.98 H (0.24-0.86) x10^3/uL Absolute Nucleated RBC 0.00 (0.00-0.012) x10^3u/L Lymphocytes % 7.8 L (19.3-51.7) % Monocytes % 7.5 (4.7-12.5) % Eosinophils % 0.0 L (0.7-5.8) % Basophils % 0.3 (0.1-1.2) % Absolute Granulocytes 10.90 H (1.56-6.13) x10^3/uL Basophils # 0.04 (0.01-0.08) x10^3/uL Sodium 130 L 134 L (135-145) mmol/L Potassium 3.4 L 3.4 L (3.5-5.1) mmol/L Chloride 103 102 (98-107) mmol/L Carbon Dioxide 17 L 24 (22-30) mmol/L Anion Gap 13.9 11.4 (5-15) MEQ/L BUN 40 H 36 H (7-17) mg/dL Creatinine 1.67 H 1.32 H (0.52-1.04) mg/dL Estimated GFR 33.0 43.7 ML/MIN Glucose 223 H 203 H (74-106) mg/dL Hemoglobin A1c (4.5-6.0) % Calcium 8.4 8.3 L (8.4-10.2) mg/dL Total Bilirubin 1.20 0.90 (0.2-1.3) mg/dL AST 174 H 144 H (14-36) U/L ALT 115 H 107 H (0-35) U/L Alkaline Phosphatase 139 H 127 H (38-126) U/L Serum Total Protein 6.6 6.3 (6.3-8.2) g/dL Albumin 3.3 L 3.2 L (3.5-5.0) g/dL Urine Opiates Level (NEGATIVE) Ur Methadone (NEGATIVE) Urine Barbiturates (NEGATIVE) Ur Phencyclidine (PCP) (NEGATIVE) Urine Amphetamine (NEGATIVE) U Benzodiazepine Level (NEGATIVE) Urine Cocaine (NEGATIVE) Urine Marijuana (THC) (NEGATIVE) Micro Results-Entire Visit: Microbiology 04/12/25 12:03 Blood Culture Gram Stain - Final Blood Blood Culture - Preliminary GRAM POSITIVE ID AND SENSITIVITY PENDING 04/12/25 11:55 Blood Culture Gram Stain - Final Blood Blood Culture - Preliminary GRAM POSITIVE ID AND SENSITIVITY PENDING 04/12/25 11:30 Urine Culture - Final Catherized Staphylococcus Aureus - Radiology Exams Ordered Rad Exams-Entire Visit: Radiology Procedures Category Date Time Status ABDOMEN AND PELVIS W/0 CONTRAS [CT] Stat Exams 04/12/25 14:28 Completed CHEST 1 VIEW (PORTABLE) Stat Exams 04/13/25 07:10 Completed CHEST WITHOUT CONTRAST [CT] Stat Exams 04/13/25 09:44 Completed ECHO W/2D AND DOPPLER [US] Routine Exams 04/15/25 07:00 Ordered HEAD WITHOUT CONTRAST [CT] Stat Exams 04/12/25 11:30 Completed - Procedures and Test Procedures and Tests throughout Hospitalization: Therapy Orders & Screens 04/12/25 19:34 Oxygen Nasal Cannula 2 lpm Comment: Respiratory Therapy Consult ONCE Comment: Reason For Exam: 04/12/25 21:12 BiPap/CPAP ROUTINE Comment: Diagnosis: SEPSIS Respiratory Therapy Assessment DAILY Comment: Diagnosis: SEPSIS 04/13/25 09:30 PT Eval & Treat ( Order) ONCE Reason for Eval:: weakness Diagnosis: SEPSIS Respiratory Therapy Consult ONCE Comment: Reason For Exam: Diagnosis: SEPSIS OT Eval and Treat ( Order) ONCE Comment: Physician Instructions: Reason For Exam: Diagnosis: SEPSIS Discharge Exam General Appearance: no apparent distress Neurologic Exam: alert, oriented x 3, cooperative Eye Exam: PERRL Ears, Nose, Throat Exam: normal ENT inspection Neck Exam: normal inspection Respiratory Exam: crackles/rales, wheezing Cardiovascular Exam: regular rate/rhythm, normal heart sounds Gastrointestinal/Abdomen Exam: soft, normal bowel sounds Pelvic Exam: deferred Rectal Exam: deferred Back Exam: normal inspection Extremity Exam: normal inspection Skin Exam: normal color Final Diagnosis/Problem List - Final Discharge Diagnosis/Problem (1) Sepsis Current Visit: Yes Status: Acute Assessment & Plan: Concordant urine and blood cultures growing Staph aureus indicate a true bacteremia with urinary origin. Requires transfer for ID consult and TREY to evaluate for infective endocarditis. Treated with IV vancomycin + Zosyn; continue until sensitivities available. (2) UTI (urinary tract infection) Current Visit: Yes Status: Acute Assessment & Plan: UA with nitrites, leukocytes, >50 casts; Ucult positive for S. aureus. Most likely source of bacteremia; continue IV antibiotics until culture-directed therapy available Code(s): N39.0 - URINARY TRACT INFECTION, SITE NOT SPECIFIED (3) Pneumonia Current Visit: Yes Status: Acute Assessment & Plan: CXR showed new LLL interstitial/alveolar opacity with small pleural effusion; supportive of developing pneumonia. CT chest stable for chronic changes but does not contradict diagnosis. Covered with current antibiotic regimen; requires continued monitoring. Code(s): J18.9 - PNEUMONIA, UNSPECIFIED ORGANISM (4) TUCKER (acute kidney injury) Current Visit: Yes Status: Acute Assessment & Plan: Creatinine improved from 2.45- 2.24- 1.32. Mauricio placed after 750 mL retention Continue renal-dosed medications and BMP monitoring. Code(s): N17.9 - ACUTE KIDNEY FAILURE, UNSPECIFIED (5) Metabolic acidosis Current Visit: Yes Status: Acute Assessment & Plan: CO2 14 on presentation; started on bicarbonate drip. CO2 improved to 24; drip discontinued. Continue monitoring acid-base status at receiving facility. Code(s): E87.20 - ACIDOSIS, UNSPECIFIED (6) Acute metabolic encephalopathy Current Visit: Yes Status: Acute Assessment & Plan: Secondary to sepsis, TUCKER, metabolic acidosis, hepatic stress; CT head negative for acute intracranial pathology. Mental status improved with correction of underlying derangements. Code(s): G93.41 - METABOLIC ENCEPHALOPATHY (7) Transaminitis Current Visit: Yes Status: Acute Assessment & Plan: Initial AST 362, ALT 151, ALK-PHOS 162, bili 1.8; corresponds to sepsis-related hepatocellular injury and fatty hepatomegaly on imaging - downtrending CT abdomen/pelvis as stated above Trend LFTs; avoid hepatotoxins Code(s): R74.01 - ELEVATION OF LEVELS OF LIVER TRANSAMINASE LEVELS (8) Urinary retention Current Visit: Yes Status: Acute Assessment & Plan: Required Mauricio after inability to void and retention of 750 mL. Continue monitoring; trial of void after clinical improvement Code(s): R33.9 - RETENTION OF URINE, UNSPECIFIED (9) Asthma Current Visit: Yes Status: Acute Assessment & Plan: Continue inhalers; bronchodilators PRN, especially with pneumonia-related wheezing. Code(s): J45.909 - UNSPECIFIED ASTHMA, UNCOMPLICATED (10) HTN (hypertension) Current Visit: Yes Status: Acute Assessment & Plan: Hold NANY/ARB until TUCKER fully resolves. Code(s): I10 - ESSENTIAL (PRIMARY) HYPERTENSION (11) HLD (hyperlipidemia) Current Visit: Yes Status: Acute Assessment & Plan: Hold statin due to current hepatic injury; reassess later Code(s): E78.5 - HYPERLIPIDEMIA, UNSPECIFIED (12) GERD (gastroesophageal reflux disease) Current Visit: Yes Status: Acute Assessment & Plan: Continue PPI; stable on imaging. Code(s): K21.9 - GASTRO-ESOPHAGEAL REFLUX DISEASE WITHOUT ESOPHAGITIS (13) Hiatal hernia Current Visit: Yes Status: Acute Assessment & Plan: see above GERD Code(s): K44.9 - DIAPHRAGMATIC HERNIA WITHOUT OBSTRUCTION OR GANGRENE (14) Depression Current Visit: Yes Status: Acute Assessment & Plan: continue paxil Code(s): F32.A - DEPRESSION, UNSPECIFIED (15) Closed T12 fracture Current Visit: Yes Status: Acute Assessment & Plan: Seen on CT abdomen/pelvis without soft-tissue disruption or acute features; associated with osteopenia. No neurologic deficits; manage conservatively with renal-safe analgesia. Code(s): S22.089A - UNSP FRACTURE OF T11-T12 [place], INIT FOR CLOS FX - Discharge Discharge Date: 04/14/25 Disposition: DC TO OTHER HOSP Condition: Fair Prescriptions: New Lactobacillus Acidophilus [Acidophilus TABLET] 1 tab PO DAILY tablet Fluticasone/Salmeterol 115/21 [Advair Hfa 115/21 Common canister*] 2 puff IH BIDRT inhaler Heparin 5000 Units/0.5 ml [Heparin 5000 Units/0.5 ml (High Risk Med)] 5,000 unit SQ BID Piperacillin/Tazobactam 3.375G [Piperacillin/Tazobactam] 3.375 gm IV Q6HT PANTOPRAZOLE 40 mg Tablet [Protonix 40MG Tablet] 40 mg PO DAILY tablet NaCl 0.9% 1000 ml [Sodium Chloride 0.9% 1000 ML] 75 ml IV Q1H Methylprednisolone Sod Suc 40M [solu-MEDROL] 40 mg IV Q12HT Vancomycin/Water For Inj (Peg) [Vancomycin 1 Gram/200 ml Bag] 1 gm IV DAILY iv piggy Ondansetron HCl 4 mg/2 ml [Zofran 4 MG/2 ML VIAL] 4 mg IV Q6H PRN PRN PRN Reason: Nausea/Vomiting Continue PARoxetine HCL [Paxil] 20 mg PO HS Amlodipine Besylate 5 mg [Norvasc 5 mg] 5 mg PO HS Ipratropium [place] 2 sprays NS Q12H Albuterol Sulfate [Albuterol Sulfate Hfa] 2 puff IH Q6HPRN PRN PRN Reason: wheezing Fluticasone Propionate [Flonase NASAL] 1 spray NS DAILY Loratadine 10 mg [Claritin 10 mg] 10 mg PO DAILY Montelukast Sodium 10 mg [Singulair 10 MG] 10 mg PO HS Budesonide/Glycopyr/Formoterol [Breztri Aerosphere Inhaler] 1 puff IH DAILY Discontinued Pravastatin Sodium [Pravachol] 20 mg PO HS Losartan Potassium 100 mg PO DAILY Follow up with: HARESH FREIRE JR [Primary Care Provider, ORTHOPEDICS]
[2025-04-14] MEDS: Klor Con PO ONE (14:09)
[2025-04-14] MEDS: POTASSIUM CHLORIDE 20 mEq IN WATER 100ML 20 MEQ/100 ML BAG IV ONE (14:19)
[2025-04-14 14:56] VITALS: BP 162/65; PULSE 81; TEMP 97.6; O2SAT 94
[2025-04-14] MEDS: ANTIVERT 25 MG PO PRN (17:42)
[2025-04-15] MEDS ORDERED: TROUGH DRUG LEVELS IJ ONE (09:30)
== END 2025-04-14 18:20 | disposition home or self-care (01) | DRG 871 ==
LOC: ED 11:16 → MED SURG 19:04
PROVIDERS: ADMIT Internal Medicine; ATTEND Internal Medicine
DX: A41.9 Sepsis, unspecified organism (principal); G93.41 Metabolic encephalopathy; J18.9 Pneumonia, unspecified organism; S22.089A Unspecified fracture of T11-T12 vertebra, initial encounter for closed fracture; N39.0 Urinary tract infection, site not specified; N17.9 Acute kidney failure, unspecified; E87.20 Acidosis, unspecified; R74.01 Elevation of levels of liver transaminase levels; R33.9 Retention of urine, unspecified; J45.909 Unspecified asthma, uncomplicated; I10 Essential (primary) hypertension; E78.5 Hyperlipidemia, unspecified; K21.9 Gastro-esophageal reflux disease without esophagitis; K44.9 Diaphragmatic hernia without obstruction or gangrene; F32.A Depression, unspecified; Z79.899 Other long term (current) drug therapy
CPT/HCPCS: 36415; 70450; 71045; 71250; 74176; 80053; 80307; 81001; 82140; 82947; 83036; 83605; 83735; 83880; 84145; 85025; 85610; 87040; 87077; 87086; 87186; 93005; 93041; 94640; 94660; 94760; 94762; 96365; 96374; 99291; P9612